=== PATIENT | male | born 1960 | race Caucasian/White ===

== ENCOUNTER 2017-09-04 12:04 | Observation (INO) | payer BC ==
[~2017-09-04] VITALS: Ht 170.2 cm; Wt 70.3 kg
[2017-09-04 13:11] LABS: Hematocrit 35.4 % (41.0-53.0); Hemoglobin 11.7 g/dL (13.5-17.5); Mean Corpuscular Hemoglobin 28.7 pg (28.0-32.0); Mean Corpuscular Hgb Conc. 32.9 g/dL (32.0-36.0); Mean Corpuscular Volume 87.2 fL (80.0-100.0); Platelet Count (auto) 326 10^3/uL (140-450); Red Blood Cells 4.06 10^6/uL (4.5-5.90); Red Cell Distribution Width 12.8 % (11.8-14.3)
[2017-09-04 13:19] LABS: White Blood Cell 33.6 10^3/uL (4.4-10.8)
[2017-09-04 13:21] LABS: Band Neutrophils % (manual) 0; Basophils % (manual) 0 (0.0-2.0); Blast Cells 0; Eosinophils % (manual) 0 (0-7); Metamyelocytes % 0; Myelocytes % 0; Promyelocytes % 0; Reactive Lymphocytes 0
[2017-09-04 13:33] LABS: Albumin 2.2 g/dL (3.4-5.0); Calcium 8.5 mg/dL (8.5-10.1)
[2017-09-04 13:34] LABS: Bilirubin, Total 0.8 mg/dL (0.2-1.0); Total Protein 7.7 g/dL (6.4-8.2)
[2017-09-04] MEDS ORDERED: SODIUM CHLORIDE 0.9% 1,000 ML IVB ONE (13:58)
[2017-09-04] MEDS ORDERED: SODIUM CHLORIDE 0.9% 1,000 ML IV ONE (14:00)
[2017-09-04] MEDS ORDERED: ONDANSETRON HCL 4 MG/2 ML VIAL IV ONE (14:00)
[2017-09-04 14:16] LABS: Lymphocytes % (manual) 3 (10.0-50.0); Monocytes % (manual) 7 (0-12)
[2017-09-04] MEDS ORDERED: CLINDAMYCIN 600MG IV 50 ML IV ONE (14:30)
[2017-09-04 14:44] LABS: Magnesium 2.1 mg/dL (1.6-2.6)
[2017-09-04] MEDS ORDERED: InsuLIN REG 1unit/0.01ml Soln (100units/ml) IV ONE (14:45)
[2017-09-04 14:53] LABS: INR 1.08 (0.9-1.15); Partial Thromboplastin Time 34.1 sec (22.64-33.71); Prothrombin Time 11.8 sec (9.37-12.3)
[2017-09-04] MEDS ORDERED: PROMETHAZINE HCL 25 MG/ML 1ML ONE (15:01)
[2017-09-04] MEDS ORDERED: PROMETHAZINE HCL 25 MG/ML 1ML IV ONE (15:15)
[2017-09-04 15:28] LABS: Lactic Acid w/Reflex 2.7 mmol/L (0.4-2.0)
[2017-09-04] MEDS ORDERED: PIPERACILLIN-TAZOB 2.25GM 50 ML IV ONE (15:30)
[2017-09-04] MEDS ORDERED: LINEZOLID 600MG/300ML 300 ML IV SCH ×2 (15:30→18:00)
[2017-09-04 16:34] VITALS: BP 115/57
[2017-09-04] MEDS ORDERED: PIPERACILLIN-TAZOB 2.25GM 50 ML IV SCH (21:00)
== END 2017-09-04 16:52 | disposition short-term general hospital (02) | DRG 872 ==
LOC: ER 12:04 → OVERFLOW 14:00 → ER 16:52
PROVIDERS: ADMIT Family Medicine; ATTEND Family Medicine
DX: A41.9 Sepsis, unspecified organism (principal); E11.65 Type 2 diabetes mellitus with hyperglycemia; N19 Unspecified kidney failure; L03.119 Cellulitis of unspecified part of limb; R11.2 Nausea with vomiting, unspecified; Z91.14 Patient's other noncompliance with medication regimen; Z91.19 Patient's noncompliance with other medical treatment and regimen; Z82.49 Family history of ischemic heart disease and other diseases of the circulatory system; Z83.3 Family history of diabetes mellitus
CPT/HCPCS: 36415; 71046; 73630; 73700; 74176; 80053; 82150; 82962; 83605; 83690; 83735; 85007; 85027; 85610; 85730; 87040; 87077; 87186; 87205; 93005; 96361; 96365; 96366; 96368; 96372; 96375; 99291; G0378; J1815; J2405; J2543; J2550; J3490; J7030

== ENCOUNTER 2020-02-13 12:07 | Inpatient (IN) | payer BC, OTHER ==
[~2020-02-13] VITALS: Ht 170.2 cm; Wt 74.5 kg
[2020-02-13] MEDS ORDERED: ACETAMINOPHEN 500 MG TAB PO ONE (13:30)
[2020-02-13] MEDS ORDERED: SODIUM CHLORIDE 0.9% 1,000 ML IVB ONE (14:55)
[2020-02-13] MEDS ORDERED: MORPHINE SULF INJ 2 MG/ML SYRINGE 1ML IV ONE (15:00)
[2020-02-13] MEDS ORDERED: ONDANSETRON HCL 4 MG/2 ML VIAL IV ONE ×2 (15:00→20:15)
[2020-02-13 15:25] LABS: Basophils # (auto) 0.1 10 ^3/uL (0-0.2); Basophils % (auto) 0.4 % (0.0-2.0); Eosinophils # (auto) 0 10 ^3/uL (0-0.8); Hematocrit 29.2 % (41.0-53.0); Hemoglobin 9.4 g/dL (13.5-17.5); Lymphocytes # (auto) 0.8 10 ^3/uL (0.4-5.4); Lymphocytes % (auto) 3.2 % (10.0-50.0); Mean Corpuscular Hemoglobin 29.4 pg (28.0-32.0); Mean Corpuscular Hgb Conc. 32.1 g/dL (32.0-36.0); Mean Corpuscular Volume 91.7 fL (80.0-100.0); Monocytes # (auto) 1.5 10 ^3/uL (0-1.3); Monocytes % (auto) 5.9 % (0.0-12.0); Neutrophils # (auto) 22.9 10 ^3/uL (1.6-8.6); Neutrophils % (auto) 90.5 % (37.0-80.0); Platelet Count (auto) 432 10^3/uL (140-450); Red Blood Cells 3.19 10^6/uL (4.5-5.90); Red Cell Distribution Width 15.3 % (11.8-14.3); White Blood Cell 25.3 10^3/uL (4.4-10.8)
[2020-02-13 15:28] LABS: Albumin 2.2 g/dL (3.4-5.0); Calcium 7.1 mg/dL (8.5-10.1); Magnesium 2.4 mg/dL (1.6-2.6); Potassium 3.3 mmol/L (3.5-5.1)
[2020-02-13 15:29] LABS: INR 1.15 (0.9-1.15); Partial Thromboplastin Time 32.9 sec (23.0-31.2)
[2020-02-13 15:32] LABS: BUN/Creatinine Ratio 9.2; Bilirubin, Total 0.4 mg/dL (0.2-1.0); Total Protein 6.8 g/dL (6.4-8.2)
[2020-02-13] MEDS ORDERED: DEXTROSE (50%) 50ML SYRG IV ONE (16:30)
[2020-02-13] MEDS ORDERED: cefTRIAXone 1GM/50ML D5W 50 ML IV ONE (17:00)
[2020-02-13] MEDS ORDERED: MORPHINE SULFATE 4 MG/ML SYR/VIAL IV ONE (20:15)
[2020-02-13] MEDS ORDERED: TEMAZEPAM 15 MG CAP PO PRN (20:45)
[2020-02-13] MEDS ORDERED: DOCUSATE SOD 100 MG CAP PO PRN (20:45)
[2020-02-13] MEDS ORDERED: ACETAMINOPHEN 500 MG TAB PO PRN (20:45)
[2020-02-13] MEDS ORDERED: ACETAMINOPHEN 325 MG TAB PO PRN (20:45)
[2020-02-13] MEDS ORDERED: ALBUTEROL SULF HFA 90MCG INH 200DOSE IN SCH (22:00)
[2020-02-13] MEDS: DOXYCYCLINE 100 MG TAB/CAP PO SCH (22:52)
[2020-02-13] MEDS: ONDANSETRON HCL 4 MG/2 ML VIAL IV PRN (23:01)
[2020-02-13] MEDS: MORPHINE SULF INJ 2 MG/ML SYRINGE 1ML IV PRN (23:02)
[2020-02-14] MEDS: CLINDAMYCIN 600MG IV 50 ML IV SCH ×2 (00:50→06:25)
[2020-02-14] MEDS: HYDROcodone-ACET 5/325MG TAB PO PRN (00:51)
[2020-02-14] MEDS: ONDANSETRON HCL 4 MG/2 ML VIAL IV PRN ×3 (03:12→22:28)
[2020-02-14] MEDS: MORPHINE SULF INJ 2 MG/ML SYRINGE 1ML IV PRN ×3 (03:12→22:28)
[2020-02-14 08:07] LABS: Basophils # (auto) 0 10 ^3/uL (0-0.2); Basophils % (auto) 0.1 % (0.0-2.0); Eosinophils # (auto) 0 10 ^3/uL (0-0.8); Eosinophils % (auto) 0.1 % (0.0-7.0); Hemoglobin 8.9 g/dL (13.5-17.5); Lymphocytes # (auto) 0.9 10 ^3/uL (0.4-5.4); Lymphocytes % (auto) 3.6 % (10.0-50.0); Mean Corpuscular Hemoglobin 29.6 pg (28.0-32.0); Mean Corpuscular Hgb Conc. 31.9 g/dL (32.0-36.0); Mean Corpuscular Volume 92.7 fL (80.0-100.0); Monocytes # (auto) 1.3 10 ^3/uL (0-1.3); Monocytes % (auto) 4.9 % (0.0-12.0); Neutrophils # (auto) 23.3 10 ^3/uL (1.6-8.6); Neutrophils % (auto) 91.3 % (37.0-80.0); Platelet Count (auto) 360 10^3/uL (140-450); Red Blood Cells 3.02 10^6/uL (4.5-5.90); Red Cell Distribution Width 15.7 % (11.8-14.3); White Blood Cell 25.6 10^3/uL (4.4-10.8)
[2020-02-14 08:42] LABS: Albumin 1.9 g/dL (3.4-5.0); Calcium 7.1 mg/dL (8.5-10.1); Magnesium 2.4 mg/dL (1.6-2.6); Potassium 3.3 mmol/L (3.5-5.1)
[2020-02-14 08:49] LABS: BUN/Creatinine Ratio 9.7; Bilirubin, Total 0.4 mg/dL (0.2-1.0); Total Protein 5.9 g/dL (6.4-8.2)
[2020-02-14] MEDS ORDERED: ZINC SULFATE 220mg CAP or TAB PO SCH (10:00)
[2020-02-14] MEDS ORDERED: ASCORBIC ACID 1,000 MG TAB PO SCH (10:00)
[2020-02-14] MEDS: ENOXAPARIN SOD 30 MG/0.3 ML SYRINGE SC SCH (11:04)
[2020-02-14] MEDS: DOXYCYCLINE 100 MG TAB/CAP PO SCH (11:04)
[2020-02-14] MEDS ORDERED: VANCOMYCIN PER PHARMACY 0 MG IV SCH (12:00)
[2020-02-14] MEDS ORDERED: MEROPENEM 500MG IVPB 50 ML IV ONE (12:00)
[2020-02-14] MEDS ORDERED: VANCOMYCIN 1GM/250ML 250 ML IV ONE (12:00)
[2020-02-14] MEDS ORDERED: SODIUM CHL 0.9% 1000 ML BAG XX ONE (13:00)
[2020-02-14 13:30] VITALS: BP 134/60
--- NOTE | 2020-02-14 13:40 | NUR ---
Telemetry admit from ER KAITLIN DEJESUS admitted to Telemetry unit after SBAR received. Patient oriented to JUNIOR CLAY RN primary RN, unit, room, bed, and unit policies regarding patient care. Patient now on continuous telemetry monitoring, tele box # 38 and telemetry reading on arrival to unit is sinus rhythm 92. Patient placed on bedside oxygen 2L NC, respirations even and unlabored. Bed in low and locked position, call light within reach. Will continue to monitor Q1 hour and PRN.
[2020-02-14] MEDS: GENTAMICIN OPTH sol 0.3% 5ml EACHEYE SCH ×3 (14:00→22:27)
--- NOTE | 2020-02-14 14:10 | NUR ---
POM Patient own medications taken down to pharmacy.
[2020-02-14] MEDS ORDERED: PATI1POW PO (15:28)
[2020-02-14] MEDS ORDERED: MULT-1018 PO (15:28)
[2020-02-14] MEDS ORDERED: FERR27TA2 PO (15:28)
[2020-02-14] MEDS ORDERED: CYAN1TAB14 PO (15:28)
[2020-02-14] MEDS ORDERED: INSLISPI SC (15:28)
[2020-02-14] MEDS ORDERED: SEVE800T8 PO (15:28)
[2020-02-14] MEDS ORDERED: MAGN500C PO (15:28)
[2020-02-14] MEDS ORDERED: FURO80TA3 PO (15:28)
[2020-02-14] MEDS ORDERED: AML5T PO (15:28)
[2020-02-14] MEDS ORDERED: TURM500C3 PO (15:28)
[2020-02-14] MEDS ORDERED: UBIQ100C6 PO (15:28)
[2020-02-14] MEDS ORDERED: ATOR20TA PO (15:28)
--- NOTE | 2020-02-14 16:33 | NUR ---
Dialysis nurse at bedside
--- NOTE | 2020-02-14 19:05 | NUR ---
Closing Note Report given to mine shifter RN. No signs or symptoms of distress noted at this time. Dialysis nurse at bedside.
[2020-02-14 21:00] VITALS: BP 129/66
[2020-02-14] MEDS ORDERED: EPOETIN ALFA 10,000 UNIT/1 ML VIAL SC ONE (21:00)
[2020-02-15] MEDS: LORazepam 0.5 MG TAB PO PRN (02:04)
[2020-02-15] MEDS: GENTAMICIN OPTH sol 0.3% 5ml EACHEYE SCH ×6 (02:06→22:44)
[2020-02-15] MEDS: MORPHINE SULF INJ 2 MG/ML SYRINGE 1ML IV PRN ×5 (02:35→20:44)
[2020-02-15 05:00] VITALS: BP 113/59
[2020-02-15 06:28] LABS: Basophils # (auto) 0 10 ^3/uL (0-0.2); Eosinophils # (auto) 0.1 10 ^3/uL (0-0.8); Eosinophils % (auto) 0.3 % (0.0-7.0); Hematocrit 27.6 % (41.0-53.0); Hemoglobin 8.8 g/dL (13.5-17.5); Lymphocytes # (auto) 1.3 10 ^3/uL (0.4-5.4); Lymphocytes % (auto) 5.6 % (10.0-50.0); Mean Corpuscular Hemoglobin 29.5 pg (28.0-32.0); Mean Corpuscular Hgb Conc. 31.8 g/dL (32.0-36.0); Mean Corpuscular Volume 92.8 fL (80.0-100.0); Monocytes # (auto) 1.5 10 ^3/uL (0-1.3); Monocytes % (auto) 6.2 % (0.0-12.0); Neutrophils # (auto) 21.1 10 ^3/uL (1.6-8.6); Neutrophils % (auto) 87.9 % (37.0-80.0); Platelet Count (auto) 377 10^3/uL (140-450); Red Blood Cells 2.97 10^6/uL (4.5-5.90)
[2020-02-15 07:11] LABS: BUN/Creatinine Ratio 3.7; Potassium 3.4 mmol/L (3.5-5.1)
--- NOTE | 2020-02-15 07:25 | NUR ---
Opening Note Received report from starting gate driver RN. Patient is awake, alert and oriented x4. No signs or symptoms of distress noted at this time. Patient complains of pain to right leg and is requesting pain medications, will medicate per orders. Patient is on room air, respirations even and unlabored. Reviewed plan of care with patient, patient verbalized understanding. Bed in low and locked position, call light within reach. Will continue to monitor Q1 hour and PRN.
[2020-02-15] MEDS ORDERED: VANCOMYCIN 1GM/250ML 250 ML IV ONE (08:30)
[2020-02-15 08:55] VITALS: BP 138/71
[2020-02-15] MEDS: MEROPENEM 500MG IVPB 50 ML IV SCH ×2 (10:00→22:45)
[2020-02-15] MEDS ORDERED: MEROPENEM 500MG IVPB 50 ML IV SCH (10:00)
[2020-02-15] MEDS: ENOXAPARIN SOD 30 MG/0.3 ML SYRINGE SC SCH (10:14)
[2020-02-15] MEDS: ONDANSETRON HCL 4 MG/2 ML VIAL IV PRN ×2 (10:14→20:45)
--- NOTE | 2020-02-15 11:48 | NUR ---
Nutrition Consult/Assessment Note please see attached link for complete assessment [employer] needs BW 79 [id number] kcals (27-30 kcal/kgBW), Est Protein needs: 94-110gms/day (1.2-1.4 gm/kgBW r/t HD severe hypoalb). Will continue to monitor and reassess prn. Addendum: 02/15/20 at [address] Amended: Links added.
[2020-02-15 13:21] VITALS: BP 147/76
[2020-02-15] MEDS ORDERED: POTASSIUM CHL 20 Meq TABLET PO ONE (14:30)
[2020-02-15 16:28] VITALS: BP 127/80
--- NOTE | 2020-02-15 19:04 | NUR ---
Closing Note Report given to gold letterer RN. No signs or symptoms of distress noted at this time.
[2020-02-15 22:00] VITALS: BP 129/69
[2020-02-16] VITALS (7 sets, daily range): BP systolic 125–156; BP diastolic 66–80
[2020-02-16] MEDS: GENTAMICIN OPTH sol 0.3% 5ml EACHEYE SCH ×6 (02:00→22:00)
[2020-02-16 05:46] LABS: Basophils # (auto) 0 10 ^3/uL (0-0.2); Basophils % (auto) 0.1 % (0.0-2.0); Eosinophils # (auto) 0 10 ^3/uL (0-0.8); Hematocrit 27.3 % (41.0-53.0); Hemoglobin 8.5 g/dL (13.5-17.5); Lymphocytes # (auto) 0.8 10 ^3/uL (0.4-5.4); Lymphocytes % (auto) 3.5 % (10.0-50.0); Mean Corpuscular Hemoglobin 29.2 pg (28.0-32.0); Monocytes % (auto) 4.5 % (0.0-12.0); Neutrophils # (auto) 20.2 10 ^3/uL (1.6-8.6); Neutrophils % (auto) 91.9 % (37.0-80.0); Platelet Count (auto) 396 10^3/uL (140-450); Red Blood Cells 2.91 10^6/uL (4.5-5.90); Red Cell Distribution Width 15.7 % (11.8-14.3)
[2020-02-16 06:12] LABS: Potassium 4.2 mmol/L (3.5-5.1)
[2020-02-16 06:19] LABS: BUN/Creatinine Ratio 8.4; Calcium 6.7 mg/dL (8.5-10.1)
[2020-02-16] MEDS ORDERED: SODIUM CHL 0.9% 1000 ML BAG XX ONE (07:00)
--- NOTE | 2020-02-16 07:46 | NUR ---
Opening Note Assumed pt care from NOC RN. Pt is a/ox4 with no s/s of distress or SOB. Pt is currently sitting upright in bed receiving dialysis at this time. Discussed POC with pt and pending Radiology consult; pt verbalized understanding. Safety measures maintained with call light within reach, bed in lowest position and side rails up.Will continue to monitor for changes.
[2020-02-16] MEDS ORDERED: IOHEXOL 300 MG/ML 100ML BOTTLE IJ ONE (09:46)
[2020-02-16] MEDS: ENOXAPARIN SOD 30 MG/0.3 ML SYRINGE SC SCH (10:01)
[2020-02-16] MEDS: MORPHINE SULF INJ 2 MG/ML SYRINGE 1ML IV PRN ×2 (10:37→23:03)
--- NOTE | 2020-02-16 10:55 | NUR ---
Dialysis Compleye Completed treatment, pt tolerated treatment well.
[2020-02-16] MEDS: HYDROcodone-ACET 5/325MG TAB PO PRN (11:07)
--- NOTE | 2020-02-16 12:21 | NUR ---
Pt Off Unit to Radiology Taken via bed. A/ox4 with no s/s of distress. Addendum: 02/16/20 at 1311 by NERISSA CAO RN RN Pt back on unit. A/oX4 with no s/s of distress.
[2020-02-16] MEDS ORDERED: LIDOCAINE 2%HCL (LOCAL ANESTH.) INJ 20ML MDV ONE (12:35)
--- NOTE | 2020-02-16 14:37 | NUR ---
Dr Campbell at Bedside MD to see pt. No new orders at this time. Will continue to monitor for changes.
[2020-02-16] MEDS ORDERED: VANCOMYCIN 500 MG in D5W 5% 100 ML IV ONE (16:00)
[2020-02-16] MEDS ORDERED: EPOETIN ALFA 10,000 UNIT/1 ML VIAL SC ONE (21:00)
[2020-02-16] MEDS: ONDANSETRON HCL 4 MG/2 ML VIAL IV PRN (23:03)
[2020-02-17] MEDS: GENTAMICIN OPTH sol 0.3% 5ml EACHEYE SCH ×6 (02:00→22:24)
[2020-02-17 05:44] VITALS: BP 153/89
[2020-02-17 05:45] LABS: Basophils # (auto) 0 10 ^3/uL (0-0.2); Basophils % (auto) 0.2 % (0.0-2.0); Eosinophils # (auto) 0.2 10 ^3/uL (0-0.8); Eosinophils % (auto) 0.8 % (0.0-7.0); Hematocrit 27.4 % (41.0-53.0); Hemoglobin 8.7 g/dL (13.5-17.5); Lymphocytes # (auto) 1.1 10 ^3/uL (0.4-5.4); Lymphocytes % (auto) 5.7 % (10.0-50.0); Mean Corpuscular Hemoglobin 29.9 pg (28.0-32.0); Mean Corpuscular Hgb Conc. 31.9 g/dL (32.0-36.0); Mean Corpuscular Volume 93.9 fL (80.0-100.0); Monocytes # (auto) 1.1 10 ^3/uL (0-1.3); Monocytes % (auto) 5.5 % (0.0-12.0); Neutrophils # (auto) 17.1 10 ^3/uL (1.6-8.6); Neutrophils % (auto) 87.8 % (37.0-80.0); Platelet Count (auto) 445 10^3/uL (140-450); Red Blood Cells 2.92 10^6/uL (4.5-5.90); Red Cell Distribution Width 16.4 % (11.8-14.3); White Blood Cell 19.5 10^3/uL (4.4-10.8)
[2020-02-17 06:06] LABS: Potassium 3.8 mmol/L (3.5-5.1)
[2020-02-17 06:15] LABS: Albumin 1.9 g/dL (3.4-5.0); BUN/Creatinine Ratio 7.4; Bilirubin, Total 0.3 mg/dL (0.2-1.0); Calcium 7.3 mg/dL (8.5-10.1); Total Protein 6.3 g/dL (6.4-8.2)
--- NOTE | 2020-02-17 08:15 | NUR ---
Opening Shift Note Assumed care of patient, awake and alert sitting in semi-de jesus's position eating breakfast upon entering the room. No S/S of distress/SOB. Patient states he has pain in the right shoulder and hip 10/10 that he tolerates and does not require medication for. Patient verbalized the need for pain medication as a sleep aid, but "Does not require any during the day". Patient was educated on the PRN medication available to him if needed. Patient verbalized understanding and declined any medication at this time. Instructed on POC and to call for assist PRN, will continue to monitor for changes Q1hr and PRN.
[2020-02-17 09:00] VITALS: BP 150/70
[2020-02-17] MEDS: MEROPENEM 500MG IVPB 50 ML IV SCH (10:23)
[2020-02-17] MEDS: ENOXAPARIN SOD 30 MG/0.3 ML SYRINGE SC SCH (10:30)
--- NOTE | 2020-02-17 12:57 | NUR ---
Elevated BP BP of 160/89 with a HR of 78, reassessed, 160/91 with a HR of 88. Pt currently states that he is in some pain but would not like to have any pain medication at this time. Ericka Campbell. Will continue to monitor. Addendum: 02/17/20 at 1429 by NERISSA CAO RN RN MD CARDONA BACK. ORDERS GIVEN. WILL IMPLEMENT AND CONTINUE TO MONITOR.
[2020-02-17 12:59] VITALS: BP 160/91
--- NOTE | 2020-02-17 13:44 | NUR ---
Rounding Patient educated on indications for PRN stool softener and the risks of not having a bowel movement for 4 days. Patient refuses treatment. Hygiene care was also refused when offered at this time. Will continue to encourage daily hygiene and assess GI function.
[2020-02-17] MEDS: cloNIDine HCL 0.1 MG TAB PO PRN (14:47)
[2020-02-17 17:00] VITALS: BP 143/81
[2020-02-17 22:27] VITALS: BP 140/73
[2020-02-17] MEDS: MORPHINE SULF INJ 2 MG/ML SYRINGE 1ML IV PRN (22:27)
[2020-02-18] MEDS: GENTAMICIN OPTH sol 0.3% 5ml EACHEYE SCH ×6 (02:01→22:24)
[2020-02-18 05:19] LABS: Basophils # (auto) 0.1 10 ^3/uL (0-0.2); Basophils % (auto) 0.5 % (0.0-2.0); Eosinophils # (auto) 0.2 10 ^3/uL (0-0.8); Hematocrit 28.9 % (41.0-53.0); Hemoglobin 8.9 g/dL (13.5-17.5); Lymphocytes # (auto) 1.2 10 ^3/uL (0.4-5.4); Lymphocytes % (auto) 6.2 % (10.0-50.0); Mean Corpuscular Hemoglobin 29.4 pg (28.0-32.0); Mean Corpuscular Hgb Conc. 30.9 g/dL (32.0-36.0); Mean Corpuscular Volume 95.3 fL (80.0-100.0); Monocytes # (auto) 1.2 10 ^3/uL (0-1.3); Monocytes % (auto) 6.5 % (0.0-12.0); Neutrophils # (auto) 16.5 10 ^3/uL (1.6-8.6); Neutrophils % (auto) 85.8 % (37.0-80.0); Platelet Count (auto) 459 10^3/uL (140-450); Red Blood Cells 3.03 10^6/uL (4.5-5.90); Red Cell Distribution Width 15.8 % (11.8-14.3); White Blood Cell 19.2 10^3/uL (4.4-10.8)
[2020-02-18 05:38] LABS: BUN/Creatinine Ratio 7.4; Calcium 7.4 mg/dL (8.5-10.1)
[2020-02-18 05:44] VITALS: BP 147/71
--- NOTE | 2020-02-18 07:50 | NUR ---
Opening Shift Note Assumed care of patient, awake and alert. No S/S of distress/SOB, patient complain of pain 10/10 when moving. Instructed on POC and to call for assist PRN, will continue to monitor for changes Q1hr and PRN. Bed in lowest position, call light in reach.
[2020-02-18 08:00] VITALS: BP 140/76
[2020-02-18] MEDS: MEROPENEM 500MG IVPB 50 ML IV SCH (08:51)
[2020-02-18] MEDS: MORPHINE SULF INJ 2 MG/ML SYRINGE 1ML IV PRN ×2 (08:52→14:52)
[2020-02-18] MEDS: ENOXAPARIN SOD 30 MG/0.3 ML SYRINGE SC SCH (08:53)
--- NOTE | 2020-02-18 08:59 | NUR ---
pain patient c/o right arm/leg pain, rates it 10/10. will medicate per MD orders.
[2020-02-18 09:00] VITALS: BP 140/76
[2020-02-18] MEDS: ceFAZolin 1GM/50ML 50 ML IV SCH (10:00)
--- NOTE | 2020-02-18 10:31 | NUR ---
UPDATED NEXT OF KIN , AFTER DAUGHTER LUIZ , PROVIDED PASSWORD.
--- NOTE | 2020-02-18 11:46 | NUR ---
Nutrition Followup Notes Wt: 78.8 kg Pt was awake and oriented when rounded . per pt in pain and ca not talk much. per reocrds pf had HD 02/15. pt is currently on CCHO 60 gm renal std diet with fair PO of avg 65% x 6 per RN doc [employer] needs BW 79 [id number] kcals (27-30 kcal/kgBW), Est Protein needs: 94-110gms/day (1.2-1.4 gm/kgBW r/t HD severe hypoalb). Will continue to monitor and reassess prn. LABS: BUN 52 H CREAT 6.98 H CA 7.4 L, GLU 254 H GI: Pt has no BM reported per RN note BS: 16 mod risk. Refer to wound assessment report for full details. PES: Altered nutrition related lab values aeb elev RFTs, severe hypoalb Comments: will continue to monitor PO intake, and skin. F/u high 3-5 days Rec: 1) consider prostat 1 packet bid. 2) refer to CDE on DC. 3) continue current plan of care
[2020-02-18] MEDS ORDERED: SODIUM CHL 0.9% 1000 ML BAG XX ONE (12:15)
[2020-02-18 13:00] VITALS: BP 134/79
--- NOTE | 2020-02-18 13:49 | NUR ---
ROUNDS Patient receiving dialysis, no signs of distress or SOB. Will continue to monitor every hour. Bed in lowest position, call light in reach.
--- NOTE | 2020-02-18 14:45 | NUR ---
Pt refused PT tx today. Addendum: 02/18/20 at 1458 by Tan Vogt [employer]CRETE M[employer]ER LOADER [employer] Amended: Links added.
--- NOTE | 2020-02-18 15:22 | NUR ---
PAIN PATIENT IS COMPLAINING OF RIGHT LEG PAIN, RTES IT 03/19, WILL MEDICATE PER MD ORDERS. Addendum: 02/18/20 at 1600 by Dora Glez RN *1522 PATIENT CONTINUES TO C/O PAIN, PATIENT IS REFUSING TO REPOSITION, STATES, " IT HURTS TO MOVE". WILL CONTINUE TO MONITOR.
--- NOTE | 2020-02-18 15:46 | NUR ---
assessment Patient is a 59 year old male who is alert and oriented. Prior to admission patient lived home alone and functioned with assistance. Per patient he will return home to his prior living arrangements post discharge and family will transport him home. Patient has a wheelchair for home use. Patient is on service with [facility] on T TH SAT at 3 pm[address] Patients PCP is Dr Santana. Patients ex- Cat is his caregiver. Patient may benefit from home health for PT and safety on discharge. I informed patient he has a right to speak to a high school social studies teacher regarding all care. I informed patient he has a right to participate in any and all discharge planning. Patient does not have a POA and advanced directive. I have offered patient information on POA and advanced directives. I informed the patient the advantages and benefits of having an Advanced Directive. Patient verbalized understanding and agreed to discharge plan. Addendum: 02/18/20 at 1552 by Skylar HILL Amended: Links added.
[2020-02-18] MEDS ORDERED: VANCOMYCIN 500 MG in D5W 5% 100 ML IV ONE (16:00)
--- NOTE | 2020-02-18 16:50 | NUR ---
PAIN Patient c/o pain, rates it 10/10. Patient is moaning and crying. Medicated with Hydrocodone, per MD orders.
[2020-02-18] MEDS: cloNIDine HCL 0.1 MG TAB PO PRN (16:58)
[2020-02-18] MEDS: HYDROcodone-ACET 5/325MG TAB PO PRN (16:59)
[2020-02-18] MEDS: LORazepam 0.5 MG TAB PO PRN (17:37)
[2020-02-18 20:00] VITALS: BP 136/77
[2020-02-18] MEDS ORDERED: EPOETIN ALFA 10,000 UNIT/1 ML VIAL SC ONE (21:00)
[2020-02-18 21:51] VITALS: BP 136/77
[2020-02-19] VITALS (7 sets, daily range): BP systolic 148–154; BP diastolic 70–81
[2020-02-19] MEDS: GENTAMICIN OPTH sol 0.3% 5ml EACHEYE SCH ×6 (02:00→22:39)
[2020-02-19] MEDS: ceFAZolin 1GM/50ML 50 ML IV SCH (10:02)
[2020-02-19] MEDS: ENOXAPARIN SOD 30 MG/0.3 ML SYRINGE SC SCH (10:02)
--- NOTE | 2020-02-19 14:33 | NUR ---
Dr Campbell on unit
[2020-02-19] MEDS ORDERED: DEXTROSE (50%) 50ML SYRG IV PRN (21:30)
--- NOTE | 2020-02-19 22:53 | NUR ---
Diabetic Treatment and Insulin Coverage The patient informed me that his diabetes has not been treated since he has been here. I told him it was missed and that I would set it up now. He stated he did not want to use our sliding scale as he was afraid we would make his blood sugar drop too low. He requested to use his own Humalog Insulin which he turned in to pharmacy upon arrival. Discussed the situation with the Pharmacist on duty and the provider, Mr. Vences. I was able to get an order to allow the patient to use his own insulin but also added a Q4 sliding scale as to further monitor as the patient has not been treated for so long. The patient's own meds is set to be given daily at 0700hrs but the patient admitted there is no set time, but that he takes it once a day. I informed him we needed to have a set time to input it into the computer system. The patient stated he understood. Will continue to monitor.
[2020-02-20] MEDS: ACCU-CHEK COMFORT CURVE STRIP VI SCH ×4 (00:25→11:36)
[2020-02-20] MEDS: GENTAMICIN OPTH sol 0.3% 5ml EACHEYE SCH ×3 (02:00→10:00)
[2020-02-20] MEDS: InsuLIN REG 1unit/0.01ml Soln (100units/ml) SC SCH ×4 (04:00→11:36)
[2020-02-20 05:00] VITALS: BP 150/78
[2020-02-20 05:00] LABS: Basophils # (auto) 0.2 10 ^3/uL (0-0.2); Basophils % (auto) 1.3 % (0.0-2.0); Eosinophils # (auto) 0.2 10 ^3/uL (0-0.8); Hematocrit 30.3 % (41.0-53.0); Hemoglobin 9.6 g/dL (13.5-17.5); Lymphocytes # (auto) 1.5 10 ^3/uL (0.4-5.4); Lymphocytes % (auto) 8.2 % (10.0-50.0); Mean Corpuscular Hemoglobin 29.7 pg (28.0-32.0); Mean Corpuscular Hgb Conc. 31.8 g/dL (32.0-36.0); Mean Corpuscular Volume 93.5 fL (80.0-100.0); Monocytes # (auto) 1.2 10 ^3/uL (0-1.3); Monocytes % (auto) 6.3 % (0.0-12.0); Neutrophils # (auto) 15.3 10 ^3/uL (1.6-8.6); Neutrophils % (auto) 83.2 % (37.0-80.0); Platelet Count (auto) 436 10^3/uL (140-450); Red Blood Cells 3.24 10^6/uL (4.5-5.90); Red Cell Distribution Width 16.1 % (11.8-14.3); White Blood Cell 18.4 10^3/uL (4.4-10.8)
[2020-02-20 05:19] LABS: Calcium 7.8 mg/dL (8.5-10.1); Potassium 3.7 mmol/L (3.5-5.1)
[2020-02-20 05:21] LABS: BUN/Creatinine Ratio 7.3
[2020-02-20] MEDS ORDERED: [UNRECOGNIZED DRUG - OTHER] SC SCH (07:00)
[2020-02-20] MEDS ORDERED: INSULIN LISPRO SC SCH (07:00)
[2020-02-20 08:00] VITALS: BP 151/82
[2020-02-20 09:00] VITALS: BP 151/82
[2020-02-20] MEDS: ceFAZolin 1GM/50ML 50 ML IV SCH (11:35)
[2020-02-20] MEDS: ENOXAPARIN SOD 30 MG/0.3 ML SYRINGE SC SCH (11:36)
[2020-02-20 12:15] VITALS: BP 151/82
[2020-02-20 13:00] VITALS: BP 145/82
--- NOTE | 2020-02-20 14:20 | NUR ---
Discharge instructions given as ordered. Encourage to follow up with PMD as instructed. Patient to call and schedule appointment as office was closed due to weekend. All questions and concerns addressed. Patient verbalized understanding. Medication reconciliation form completed and copy given to patient. Home medications held in Pharmacy returned to patient, and no needed vaccines given as patient declined. IV removed with catheter intact and pressure dressing applied. Telemetry unit returned to ICU. Patient taken to vehicle via wheelchair with all personal belongings, accompanied by staff member. No distress noted at time of departure.
[2020-02-20] MEDS ORDERED: VANCOMYCIN 500 MG in D5W 5% 100 ML IV ONE (16:00)
[2020-02-20] MEDS ORDERED: EPOETIN ALFA 10,000 UNIT/1 ML VIAL IV ONE (21:00)
== END 2020-02-20 14:20 | disposition home or self-care (01) | DRG 314 ==
LOC: ER 12:07 → OVERFLOW 12:08 → TELE-CENTR 02-14 13:12
PROVIDERS: ADMIT Hospitalist; ATTEND Internal Medicine Geriatric Medicine
PROC: 5A1D70Z Performance of Urinary Filtration, Intermittent, Less than 6 Hours Per Day (ICD-10-PCS; 2020-02-14)
PROC: 0JPV3XZ Removal of Tunneled Vascular Access Device from Upper Extremity Subcutaneous Tissue and Fascia, Percutaneous Approach (ICD-10-PCS; principal; 2020-02-16)
PROC: 5A1D70Z Performance of Urinary Filtration, Intermittent, Less than 6 Hours Per Day (ICD-10-PCS; 2020-02-16)
PROC: 5A1D70Z Performance of Urinary Filtration, Intermittent, Less than 6 Hours Per Day (ICD-10-PCS; 2020-02-18)
PROC: 5A1D70Z Performance of Urinary Filtration, Intermittent, Less than 6 Hours Per Day (ICD-10-PCS; 2020-02-20)
DX: T82.7XXA Infection and inflammatory reaction due to other cardiac and vascular devices, implants and grafts, initial encounter (principal); A41.01 Sepsis due to Methicillin susceptible Staphylococcus aureus; N18.6 End stage renal disease; L03.115 Cellulitis of right lower limb; E87.1 Hypo-osmolality and hyponatremia; I12.0 Hypertensive chronic kidney disease with stage 5 chronic kidney disease or end stage renal disease; E44.0 Moderate protein-calorie malnutrition; H10.9 Unspecified conjunctivitis; D63.1 Anemia in chronic kidney disease; E87.6 Hypokalemia; E11.649 Type 2 diabetes mellitus with hypoglycemia without coma; E78.5 Hyperlipidemia, unspecified; E11.22 Type 2 diabetes mellitus with diabetic chronic kidney disease; Z20.828 Contact with and (suspected) exposure to other viral communicable diseases; M25.511 Pain in right shoulder; M79.651 Pain in right thigh; E11.51 Type 2 diabetes mellitus with diabetic peripheral angiopathy without gangrene; Y83.8 Other surgical procedures as the cause of abnormal reaction of the patient, or of later complication, without mention of misadventure at the time of the procedure; Z99.2 Dependence on renal dialysis; Z89.512 Acquired absence of left leg below knee; Y92.89 Other specified places as the place of occurrence of the external cause; Z68.25 Body mass index [BMI] 25.0-25.9, adult
CPT/HCPCS: 36415; 71045; 73700; 80048; 80053; 80061; 80202; 82306; 82728; 82962; 83036; 83605; 83615; 83690; 83735; 83970; 84100; 85025; 85610; 85730; 86141; 87040; 87070; 87077; 87186; 87426; 90935; 93005; 93971; G0378; J0690; J0696; J0885; J1642; J2185; J2405; J3490; J7060

== ENCOUNTER 2020-06-11 10:31 | Inpatient (IN) | payer OTHER ==
[~2020-06-11] VITALS: Ht 170.2 cm; Wt 62.5 kg
[~2020-06-11 10:31] MED LIST: AML5T PO; ATOR20TA PO; CYAN1TAB14 PO; FERR27TA2 PO; FURO80TA3 PO; INSLISPI SC; MAGN500C PO; MULT-1018 PO; PATI1POW PO; SEVE800T8; TURM500C3 PO; UBIQ100C6 PO
[2020-06-11 12:29] LABS: Basophils # (auto) 0 10 ^3/uL (0-0.2); Basophils % (auto) 0.2 % (0.0-2.0); Eosinophils # (auto) 0 10 ^3/uL (0-0.8); Hematocrit 37.1 % (41.0-53.0); Hemoglobin 12.6 g/dL (13.5-17.5); Lymphocytes # (auto) 0.4 10 ^3/uL (0.4-5.4); Lymphocytes % (auto) 3.6 % (10.0-50.0); Mean Corpuscular Hemoglobin 30.9 pg (28.0-32.0); Mean Corpuscular Hgb Conc. 33.9 g/dL (32.0-36.0); Mean Corpuscular Volume 91.2 fL (80.0-100.0); Monocytes # (auto) 0.6 10 ^3/uL (0-1.3); Monocytes % (auto) 5.2 % (0.0-12.0); Neutrophils # (auto) 10.4 10 ^3/uL (1.6-8.6); Red Blood Cells 4.07 10^6/uL (4.5-5.90); Red Cell Distribution Width 15.8 % (11.8-14.3); White Blood Cell 11.4 10^3/uL (4.4-10.8)
[2020-06-11 12:48] LABS: INR 1.07 (0.9-1.15); Partial Thromboplastin Time 25.1 sec (23.0-31.2)
[2020-06-11 13:07] LABS: Potassium 5.5 mmol/L (3.5-5.1)
[2020-06-11 13:15] LABS: Albumin 3.1 g/dL (3.4-5.0); BUN/Creatinine Ratio 11.9; Bilirubin, Total 0.6 mg/dL (0.2-1.0); Calcium 8.8 mg/dL (8.5-10.1); Total Protein 8.6 g/dL (6.4-8.2)
[2020-06-11] MEDS ORDERED: ONDANSETRON HCL 4 MG/2 ML VIAL IV ONE ×2 (13:15→21:30)
[2020-06-11] MEDS ORDERED: AZITHROMYCIN 500MG/ 250ML 250 ML IV ONE (13:15)
[2020-06-11 14:01] LABS: Magnesium 2.9 mg/dL (1.6-2.6)
[2020-06-11] MEDS ORDERED: DEXTROSE (50%) 50ML SYRG IV PRN ×2 (15:15→18:30)
[2020-06-11] MEDS: InsuLIN R (HUMAN) 100 UNITS in SODIUM CHL 0.9% 99 ML IV SCH (15:15)
[2020-06-11] MEDS ORDERED: MORPHINE SULFATE INJECTION 2 MG/ML SYRG IV PRN (15:30)
[2020-06-11] MEDS ORDERED: NITROGLYCERIN 0.4 MG SL TAB SL PRN (15:30)
[2020-06-11] MEDS ORDERED: InsuLIN REG 1unit/0.01ml Soln (100units/ml) IV ONE ×2 (16:15→18:45)
[2020-06-11] MEDS ORDERED: InsuLIN REG 1unit/0.01ml Soln (100units/ml) SC ONE (16:15)
[2020-06-11] MEDS: SODIUM CHLORIDE 0.9% 1,000 ML IV SCH ×2 (16:26→21:15)
[2020-06-11] MEDS: ACCU-CHEK COMFORT CURVE STRIP VI SCH ×5 (16:32→22:30)
[2020-06-11] MEDS ORDERED: ALBUTEROL SULF HFA 90MCG INH 200DOSE IN PRN (18:30)
[2020-06-11] MEDS ORDERED: LACTULOSE 20Gm/30ML SOLN PO PRN (18:30)
[2020-06-11] MEDS ORDERED: FUROSEMIDE 40 MG/4 ML VIAL IV ONE (18:45)
[2020-06-11] MEDS ORDERED: SODIUM BICARBONATE 8.4% INJ 50ML SYRINGE IV ONE (18:45)
[2020-06-11] MEDS ORDERED: SODIUM ZIRCONIUM CYCL 10 GM PAK PO ONE (18:45)
[2020-06-11] MEDS ORDERED: SODIUM CHLORIDE 0.9% 1,000 ML IV SCH (19:15)
[2020-06-11] MEDS ORDERED: cefTRIAXone 1GM/50ML D5W 50 ML IV ONE (19:30)
[2020-06-11] MEDS ORDERED: SODIUM CHL 0.9% 1000 ML BAG XX ONE (19:30)
[2020-06-11] MEDS: SODIUM CHLOR 0.9% PF (SALINE LOCK) 10ML VIAL/SYR IV SCH (20:57)
[2020-06-11] MEDS ORDERED: SODIUM ZIRCONIUM CYCL 10 GM PAK ONE (20:59)
[2020-06-11] MEDS ORDERED: ONDANSETRON HCL 4 MG/2 ML VIAL ONE (21:22)
[2020-06-11 22:00] LABS: Potassium 4.8 mmol/L (3.5-5.1)
[2020-06-11] MEDS: BUDESONIDE (INHALATION) 180 MCG IH IN SCH (22:00)
[2020-06-12] MEDS: ACCU-CHEK COMFORT CURVE STRIP VI SCH ×6 (00:55→22:51)
[2020-06-12] MEDS: InsuLIN REG 1unit/0.01ml Soln (100units/ml) SC SCH ×5 (00:56→22:53)
[2020-06-12] MEDS: FAMOTIDINE 20 MG TAB PO SCH (00:56)
[2020-06-12] MEDS: SODIUM CHLORIDE 0.9% 1,000 ML IV SCH ×5 (00:57→22:52)
[2020-06-12 01:32] LABS: Calcium 8.3 mg/dL (8.5-10.1); Potassium 3.7 mmol/L (3.5-5.1)
[2020-06-12] MEDS: ONDANSETRON HCL 4 MG/2 ML VIAL IV PRN ×2 (03:33→07:58)
[2020-06-12 04:26] LABS: BUN/Creatinine Ratio 10.8; Calcium 8.4 mg/dL (8.5-10.1)
[2020-06-12] MEDS: SODIUM CHLOR 0.9% PF (SALINE LOCK) 10ML VIAL/SYR IV SCH ×3 (06:04→22:51)
[2020-06-12 06:22] LABS: Basophils # (auto) 0 10 ^3/uL (0-0.2); Basophils % (auto) 0.1 % (0.0-2.0); Eosinophils # (auto) 0 10 ^3/uL (0-0.8); Eosinophils % (auto) 0.5 % (0.0-7.0); Hematocrit 34.2 % (41.0-53.0); Hemoglobin 11.4 g/dL (13.5-17.5); Lymphocytes # (auto) 0.6 10 ^3/uL (0.4-5.4); Lymphocytes % (auto) 7.2 % (10.0-50.0); Mean Corpuscular Hemoglobin 30.4 pg (28.0-32.0); Mean Corpuscular Hgb Conc. 33.4 g/dL (32.0-36.0); Mean Corpuscular Volume 90.8 fL (80.0-100.0); Monocytes # (auto) 0.6 10 ^3/uL (0-1.3); Monocytes % (auto) 7.6 % (0.0-12.0); Neutrophils # (auto) 7.2 10 ^3/uL (1.6-8.6); Neutrophils % (auto) 84.6 % (37.0-80.0); Red Blood Cells 3.76 10^6/uL (4.5-5.90); Red Cell Distribution Width 15.9 % (11.8-14.3); White Blood Cell 8.5 10^3/uL (4.4-10.8)
[2020-06-12] MEDS: cefTRIAXone 1GM/50ML D5W 50 ML IV SCH (07:59)
[2020-06-12 08:03] LABS: Potassium 4.2 mmol/L (3.5-5.1)
[2020-06-12 08:18] LABS: Albumin 2.7 g/dL (3.4-5.0); BUN/Creatinine Ratio 10.5; Bilirubin, Total 0.4 mg/dL (0.2-1.0); Total Protein 7.6 g/dL (6.4-8.2)
[2020-06-12] MEDS ORDERED: DexAMETHasone SOD PHOS 10MG/1ML VIAL INJ IV SCH (10:00)
[2020-06-12] MEDS: ZINC SULFATE 220mg CAP or TAB PO SCH ×2 (10:00→12:30)
[2020-06-12] MEDS: ASCORBIC ACID 1,000 MG TAB PO SCH ×2 (10:00→12:30)
[2020-06-12] MEDS: ASPirin 81 mg TAB PO SCH ×2 (10:00→12:30)
[2020-06-12] MEDS: CHOLECALCIFEROL (VITD3) 2,000 UNIT CAP/TAB PO SCH ×2 (10:00→12:30)
[2020-06-12] MEDS: DexAMETHasone SOD PHOS 10MG/1ML VIAL INJ IV SCH (12:30)
[2020-06-12] MEDS: BUDESONIDE (INHALATION) 180 MCG IH IN SCH ×2 (12:30→21:26)
[2020-06-12] MEDS: AZITHROMYCIN 500MG/ 250ML 250 ML IV SCH (12:30)
[2020-06-12] MEDS: ENOXAPARIN SOD 40 MG/0.4 ML SYRINGE SC SCH (12:30)
[2020-06-12 13:47] LABS: BUN/Creatinine Ratio 10.5; Calcium 8.1 mg/dL (8.5-10.1); Potassium 4.8 mmol/L (3.5-5.1)
[2020-06-12] MEDS: PROMETHAZINE HCL 25 MG/ML 1ML IV PRN ×2 (15:46→22:52)
[2020-06-12] MEDS: InsuLIN R (HUMAN) 100 UNITS in SODIUM CHL 0.9% 99 ML IV SCH (17:30)
[2020-06-13] VITALS: BP 131/81
[2020-06-13 04:17] VITALS: BP 131/81
[2020-06-13] MEDS: BUDESONIDE (INHALATION) 180 MCG IH IN SCH ×2 (06:23→22:00)
[2020-06-13] MEDS: SODIUM CHLOR 0.9% PF (SALINE LOCK) 10ML VIAL/SYR IV SCH ×3 (06:36→21:13)
[2020-06-13] MEDS: SODIUM CHLORIDE 0.9% 1,000 ML IV SCH ×2 (06:36→11:29)
[2020-06-13] MEDS: ACCU-CHEK COMFORT CURVE STRIP VI SCH ×4 (06:37→21:28)
[2020-06-13] MEDS: InsuLIN REG 1unit/0.01ml Soln (100units/ml) SC SCH ×4 (06:38→21:24)
[2020-06-13] MEDS ORDERED: SODIUM CHL 0.9% 1000 ML BAG XX ONE (07:00)
[2020-06-13 07:30] LABS: Basophils # (auto) 0 10 ^3/uL (0-0.2); Basophils % (auto) 0.1 % (0.0-2.0); Eosinophils # (auto) 0 10 ^3/uL (0-0.8); Hematocrit 34.3 % (41.0-53.0); Hemoglobin 11.4 g/dL (13.5-17.5); Lymphocytes # (auto) 0.6 10 ^3/uL (0.4-5.4); Lymphocytes % (auto) 7.3 % (10.0-50.0); Mean Corpuscular Hemoglobin 30.5 pg (28.0-32.0); Mean Corpuscular Hgb Conc. 33.2 g/dL (32.0-36.0); Monocytes # (auto) 0.7 10 ^3/uL (0-1.3); Monocytes % (auto) 9.2 % (0.0-12.0); Neutrophils # (auto) 6.5 10 ^3/uL (1.6-8.6); Neutrophils % (auto) 83.4 % (37.0-80.0); Nucleated Red Blood Cells % 0.1 %; Red Blood Cells 3.73 10^6/uL (4.5-5.90); Red Cell Distribution Width 15.6 % (11.8-14.3); White Blood Cell 7.8 10^3/uL (4.4-10.8)
[2020-06-13 08:00] VITALS: BP 137/81
[2020-06-13] MEDS: DexAMETHasone SOD PHOS 10MG/1ML VIAL INJ IV SCH (09:26)
[2020-06-13] MEDS: cefTRIAXone 1GM/50ML D5W 50 ML IV SCH (09:26)
[2020-06-13] MEDS: ASPirin 81 mg TAB PO SCH (09:27)
[2020-06-13] MEDS: ZINC SULFATE 220mg CAP or TAB PO SCH (09:27)
[2020-06-13] MEDS: ASCORBIC ACID 1,000 MG TAB PO SCH (09:27)
[2020-06-13 09:39] LABS: Potassium 4.8 mmol/L (3.5-5.1)
[2020-06-13 09:58] LABS: BUN/Creatinine Ratio 10.2; Calcium 8.2 mg/dL (8.5-10.1); Magnesium 2.5 mg/dL (1.6-2.6)
[2020-06-13] MEDS: CHOLECALCIFEROL (VITD3) 2,000 UNIT CAP/TAB PO SCH (10:00)
[2020-06-13] MEDS: ENOXAPARIN SOD 40 MG/0.4 ML SYRINGE SC SCH (10:00)
[2020-06-13] MEDS: AZITHROMYCIN 500MG/ 250ML 250 ML IV SCH (11:10)
[2020-06-13 16:00] VITALS: BP 141/83
[2020-06-13] MEDS: FAMOTIDINE 20 MG TAB PO SCH (21:27)
[2020-06-14] VITALS: BP 151/82
[2020-06-14] MEDS: SODIUM CHLOR 0.9% PF (SALINE LOCK) 10ML VIAL/SYR IV SCH (05:58)
[2020-06-14] MEDS: InsuLIN REG 1unit/0.01ml Soln (100units/ml) SC SCH ×2 (06:07→11:30)
[2020-06-14] MEDS: ACCU-CHEK COMFORT CURVE STRIP VI SCH ×2 (06:11→11:30)
[2020-06-14] MEDS ORDERED: SODIUM CHL 0.9% 1000 ML BAG XX ONE (07:00)
[2020-06-14 08:00] VITALS: BP 141/103
[2020-06-14] MEDS: cefTRIAXone 1GM/50ML D5W 50 ML IV SCH (08:59)
[2020-06-14] MEDS: DexAMETHasone SOD PHOS 10MG/1ML VIAL INJ IV SCH (10:00)
[2020-06-14] MEDS: ENOXAPARIN SOD 40 MG/0.4 ML SYRINGE SC SCH (10:00)
[2020-06-14] MEDS: CHOLECALCIFEROL (VITD3) 2,000 UNIT CAP/TAB PO SCH (10:00)
[2020-06-14] MEDS: ASCORBIC ACID 1,000 MG TAB PO SCH (10:00)
[2020-06-14] MEDS: ZINC SULFATE 220mg CAP or TAB PO SCH (10:00)
[2020-06-14] MEDS: ASPirin 81 mg TAB PO SCH (10:00)
[2020-06-14] MEDS: AZITHROMYCIN 500MG/ 250ML 250 ML IV SCH (10:00)
== END 2020-06-14 12:50 | disposition home or self-care (01) | DRG 871 ==
LOC: ER 10:31 → EDBD 10:31 → TELE 15:24 → TELE-WESTW 06-12 21:41
PROVIDERS: ADMIT Internal Medicine; ATTEND Internal Medicine Geriatric Medicine
PROC: 5A1D70Z Performance of Urinary Filtration, Intermittent, Less than 6 Hours Per Day (ICD-10-PCS; principal; 2020-06-11)
PROC: 5A1D70Z Performance of Urinary Filtration, Intermittent, Less than 6 Hours Per Day (ICD-10-PCS; 2020-06-14)
DX: A41.89 Other specified sepsis (principal); U07.1 COVID-19; N18.6 End stage renal disease; I21.4 Non-ST elevation (NSTEMI) myocardial infarction; J96.00 Acute respiratory failure, unspecified whether with hypoxia or hypercapnia; J12.82 Pneumonia due to coronavirus disease 2019; I12.0 Hypertensive chronic kidney disease with stage 5 chronic kidney disease or end stage renal disease; D63.8 Anemia in other chronic diseases classified elsewhere; K21.9 Gastro-esophageal reflux disease without esophagitis; E78.5 Hyperlipidemia, unspecified; E87.70 Fluid overload, unspecified; D72.810 Lymphocytopenia; E87.5 Hyperkalemia; Z99.2 Dependence on renal dialysis; Z82.49 Family history of ischemic heart disease and other diseases of the circulatory system; Z83.3 Family history of diabetes mellitus; Z89.512 Acquired absence of left leg below knee; Z91.15 Patient's noncompliance with renal dialysis; Z91.19 Patient's noncompliance with other medical treatment and regimen; Z84.89 Family history of other specified conditions; Z81.1 Family history of alcohol abuse and dependence; Z79.899 Other long term (current) drug therapy; Z79.891 Long term (current) use of opiate analgesic; Z79.01 Long term (current) use of anticoagulants; Z79.4 Long term (current) use of insulin; E11.22 Type 2 diabetes mellitus with diabetic chronic kidney disease; E11.51 Type 2 diabetes mellitus with diabetic peripheral angiopathy without gangrene
CPT/HCPCS: 36415; 36600; 71045; 80048; 80053; 80061; 82550; 82805; 82962; 83036; 83605; 83735; 83880; 84484; 85025; 85610; 85730; 87040; 87426; 90935; 93005; 94640; 96365; 96366; 96367; 96372; 96375; 96376; 99291; G0378; J0696; J1100; J1815; J2405

== ENCOUNTER 2020-12-19 01:01 | Inpatient (IN) | payer OTHER ==
[~2020-12-19] VITALS: Ht 170.2 cm; Wt 64.7 kg
[2020-12-19 01:44] LABS: Basophils # (auto) 0.1 10 ^3/uL (0-0.2); Basophils % (auto) 0.8 % (0.0-2.0); Eosinophils # (auto) 0.1 10 ^3/uL (0-0.8); Eosinophils % (auto) 0.5 % (0.0-7.0); Hematocrit 29.8 % (41.0-53.0); Lymphocytes # (auto) 0.6 10 ^3/uL (0.4-5.4); Lymphocytes % (auto) 5.4 % (10.0-50.0); Mean Corpuscular Hemoglobin 30.9 pg (28.0-32.0); Mean Corpuscular Hgb Conc. 33.4 g/dL (32.0-36.0); Mean Corpuscular Volume 92.4 fL (80.0-100.0); Monocytes # (auto) 0.3 10 ^3/uL (0-1.3); Monocytes % (auto) 2.6 % (0.0-12.0); Neutrophils # (auto) 9.8 10 ^3/uL (1.6-8.6); Neutrophils % (auto) 90.7 % (37.0-80.0); Red Blood Cells 3.22 10^6/uL (4.5-5.90); Red Cell Distribution Width 15.8 % (11.8-14.3); White Blood Cell 10.9 10^3/uL (4.4-10.8)
[2020-12-19 01:57] LABS: Calcium 7.2 mg/dL (8.5-10.1); Chloride 99 mmol/L (98-107); Potassium 4.6 mmol/L (3.5-5.1); Sodium 131 mmol/L (136-145)
[2020-12-19 02:00] LABS: Albumin 2.6 g/dL (3.4-5.0); Anion Gap 17 (5-15); BUN/Creatinine Ratio 7.1; Carbon Dioxide 15 mmol/L (21-32); GFR African American 5 mL/min; GFR Non-African American 4 mL/min; Glucose 230 mg/dL (74-106); Lipase 103 U/L (73-393)
[2020-12-19 02:05] LABS: Alanine Aminotransferase 18 U/L (16-61); Alkaline Phosphatase 96 U/L (45-117); Aspartate Aminotransferase 9 U/L (15-37); Bilirubin, Total 0.3 mg/dL (0.2-1.0); Total Protein 7.8 g/dL (6.4-8.2)
[2020-12-19 02:20] LABS: Blood Urea Nitrogen 96 mg/dL (7-18)
[2020-12-19 02:30] LABS: Magnesium 2.1 mg/dL (1.6-2.6)
[2020-12-19 02:45] LABS: Phosphorus 10.2 mg/dL (2.5-4.90)
[2020-12-19] MEDS ORDERED: PIPERACILLIN-TAZOB 2.25GM 50 ML IV ONE (03:45)
[2020-12-19] MEDS ORDERED: NITROGLYCERIN 0.4 MG SL TAB SL PRN (06:15)
[2020-12-19] MEDS ORDERED: DEXTROSE (50%) 50ML SYRG IV PRN (06:15)
[2020-12-19] MEDS ORDERED: MORPHINE SULFATE 4 MG/ML SYR/VIAL IV PRN (06:15)
[2020-12-19] MEDS ORDERED: MORPHINE SULFATE INJECTION 2 MG/ML SYRG IV PRN (06:15)
[2020-12-19] MEDS: SODIUM CHLORIDE 0.9% 1,000 ML IV SCH ×2 (06:32→22:56)
[2020-12-19] MEDS: metroNIDAZOLE 500MG/100ML 100 ML IV SCH ×3 (06:32→14:13)
[2020-12-19 08:00] LABS: INR 1.02 (0.9-1.15); Partial Thromboplastin Time 31.9 sec (23.0-31.2)
[2020-12-19] MEDS: cefTRIAXone 1GM/50ML D5W 50 ML IV SCH (09:39)
[2020-12-19] MEDS: PANTOPRAZOLE 40 MG/10 ML VIAL INJ IV SCH (09:55)
[2020-12-19] MEDS: ACCU-CHEK COMFORT CURVE STRIP VI SCH ×2 (12:19→18:29)
[2020-12-19] MEDS: InsuLIN REG 1unit/0.01ml Soln (100units/ml) SC SCH ×2 (12:20→18:00)
[2020-12-19] MEDS: MORPHINE SULFATE 4 MG/ML SYR/VIAL IV PRN ×2 (14:20→22:14)
[2020-12-20] VITALS (7 sets, daily range): BP systolic 108–161; BP diastolic 43–73
[2020-12-20] MEDS: ACCU-CHEK COMFORT CURVE STRIP VI SCH ×4 (00:20→17:28)
[2020-12-20] MEDS: InsuLIN REG 1unit/0.01ml Soln (100units/ml) SC SCH ×4 (06:00→17:28)
[2020-12-20] MEDS ORDERED: VANCOMYCIN PER PHARMACY 0 MG IV SCH (06:15)
[2020-12-20] MEDS: metroNIDAZOLE 500MG/100ML 100 ML IV SCH ×3 (06:27→21:47)
[2020-12-20] MEDS: MORPHINE SULFATE 4 MG/ML SYR/VIAL IV PRN ×2 (06:28→21:20)
[2020-12-20 08:06] LABS: Basophils # (auto) 0 10 ^3/uL (0-0.2); Basophils % (auto) 0.3 % (0.0-2.0); Eosinophils # (auto) 0.1 10 ^3/uL (0-0.8); Eosinophils % (auto) 0.8 % (0.0-7.0); Hematocrit 27.5 % (41.0-53.0); Hemoglobin 8.8 g/dL (13.5-17.5); Lymphocytes # (auto) 0.9 10 ^3/uL (0.4-5.4); Lymphocytes % (auto) 5.6 % (10.0-50.0); Mean Corpuscular Hemoglobin 29.4 pg (28.0-32.0); Mean Corpuscular Hgb Conc. 31.9 g/dL (32.0-36.0); Mean Corpuscular Volume 92.4 fL (80.0-100.0); Neutrophils # (auto) 14.1 10 ^3/uL (1.6-8.6); Neutrophils % (auto) 87.3 % (37.0-80.0); Red Blood Cells 2.97 10^6/uL (4.5-5.90); White Blood Cell 16.2 10^3/uL (4.4-10.8)
[2020-12-20] MEDS ORDERED: VANCOMYCIN 1GM/250ML 250 ML IV ONE (08:15)
[2020-12-20 08:27] LABS: INR 1.05 (0.9-1.15)
[2020-12-20 08:29] LABS: Magnesium 2.6 mg/dL (1.6-2.6); Potassium 5.2 mmol/L (3.5-5.1)
[2020-12-20 08:37] LABS: Albumin 2.6 g/dL (3.4-5.0); BUN/Creatinine Ratio 7.8; Bilirubin, Total 0.3 mg/dL (0.2-1.0); Calcium 7.9 mg/dL (8.5-10.1); Total Protein 7.7 g/dL (6.4-8.2)
[2020-12-20] MEDS ORDERED: SODIUM BICARBONATE 50ML VIAL 100 ML in SOD CHL 0.45% 1,000 ML IV SCH ×2 (10:30→10:45)
[2020-12-20] MEDS ORDERED: SODIUM CHL 0.9% 1000 ML BAG XX ONE (10:45)
[2020-12-20] MEDS ORDERED: LIDOCAINE VISCOUS 2% 15ML UD MT ONE (10:45)
[2020-12-20] MEDS ORDERED: MULT-647 OR (11:31)
[2020-12-20] MEDS ORDERED: FERR27TA2 PO (11:32)
[2020-12-20] MEDS ORDERED: CLIN300C8 PO (11:32)
[2020-12-20] MEDS: cefTRIAXone 1GM/50ML D5W 50 ML IV SCH (12:02)
[2020-12-20] MEDS: PANTOPRAZOLE 40 MG/10 ML VIAL INJ IV SCH (12:02)
[2020-12-20] MEDS: SODIUM BICARBONATE 50ML VIAL 100 ML in D5W/SOD CHL 0.45% 1,000 ML IV SCH ×3 (12:16)
[2020-12-20] MEDS ORDERED: TPN PER PHARMACY 0 ML IV SCH (15:00)
[2020-12-20] MEDS ORDERED: LIDOCAINE 1% (LOCAL ANESTH.) PF 5ml SDV ID ONE (18:30)
[2020-12-20] MEDS ORDERED: AMINO ACID INFUSION IN D10W 1,000 ML IV NR (20:00)
[2020-12-20] MEDS ORDERED: EPOETIN ALFA-EPBX 10,000 UNIT/1ML VIAL SC ONE (21:00)
[2020-12-20] MEDS: ONDANSETRON HCL 4 MG/2 ML VIAL IV PRN (21:21)
[2020-12-20] MEDS: SODIUM CHLOR 0.9% PF (SALINE LOCK) 10ML VIAL/SYR IV SCH (21:47)
[2020-12-21] VITALS (30 sets, daily range): BP systolic 123–180; BP diastolic 47–71
[2020-12-21] MEDS: SODIUM BICARBONATE 50ML VIAL 100 ML in D5W/SOD CHL 0.45% 1,000 ML IV SCH ×2
[2020-12-21 04:44] LABS: Eosinophils # (auto) 0.1 10 ^3/uL (0-0.8); Hemoglobin 7.9 g/dL (13.5-17.5); Lymphocytes # (auto) 0.8 10 ^3/uL (0.4-5.4); Neutrophils # (auto) 11.8 10 ^3/uL (1.6-8.6)
[2020-12-21 04:49] LABS: Basophils # (auto) 0 10 ^3/uL (0-0.2); Basophils % (auto) 0.2 % (0.0-2.0); Eosinophils % (auto) 0.9 % (0.0-7.0); Hematocrit 23.4 % (41.0-53.0); Lymphocytes % (auto) 5.9 % (10.0-50.0); Mean Corpuscular Hemoglobin 31.3 pg (28.0-32.0); Mean Corpuscular Hgb Conc. 33.9 g/dL (32.0-36.0); Mean Corpuscular Volume 92.2 fL (80.0-100.0); Monocytes % (auto) 7.6 % (0.0-12.0); Neutrophils % (auto) 85.4 % (37.0-80.0); Red Blood Cells 2.54 10^6/uL (4.5-5.90); White Blood Cell 13.8 10^3/uL (4.4-10.8)
[2020-12-21 05:09] LABS: Albumin 2.4 g/dL (3.4-5.0); Calcium 7.3 mg/dL (8.5-10.1); Magnesium 2.3 mg/dL (1.6-2.6); Potassium 4.7 mmol/L (3.5-5.1)
[2020-12-21 05:20] LABS: BUN/Creatinine Ratio 7.9; Bilirubin, Total 0.3 mg/dL (0.2-1.0); Pre Albumin 16.2 mg/dL (20.0-40.0); Total Protein 6.8 g/dL (6.4-8.2)
[2020-12-21 05:43] LABS: Phosphorus 11.7 mg/dL (2.5-4.90)
[2020-12-21] MEDS: metroNIDAZOLE 500MG/100ML 100 ML IV SCH ×3 (05:52→21:32)
[2020-12-21] MEDS: ACCU-CHEK COMFORT CURVE STRIP VI SCH ×4 (05:53→18:00)
[2020-12-21] MEDS: InsuLIN REG 1unit/0.01ml Soln (100units/ml) SC SCH ×4 (05:58→18:00)
[2020-12-21] MEDS: PANTOPRAZOLE 40 MG/10 ML VIAL INJ IV SCH (09:45)
[2020-12-21] MEDS: cefTRIAXone 1GM/50ML D5W 50 ML IV SCH (09:45)
[2020-12-21] MEDS: SODIUM CHLOR 0.9% PF (SALINE LOCK) 10ML VIAL/SYR IV SCH ×2 (10:00→21:33)
[2020-12-21] MEDS ORDERED: ACET30TA15 PO (11:58)
[2020-12-21] MEDS: hydrALAZINE HCL 20 MG/ML VL IV PRN ×3 (12:11→23:22)
[2020-12-21] MEDS: ONDANSETRON HCL 4 MG/2 ML VIAL IV PRN ×2 (13:47→17:10)
[2020-12-21] MEDS: MORPHINE SULFATE 4 MG/ML SYR/VIAL IV PRN (16:06)
[2020-12-21] MEDS ORDERED: TPN PER PHARMACY IV NR ×11 (20:00)
[2020-12-22] VITALS (39 sets, daily range): BP systolic 132–221; BP diastolic 46–102
[2020-12-22] MEDS: ONDANSETRON HCL 4 MG/2 ML VIAL IV PRN ×2 (00:30→17:30)
[2020-12-22 02:40] LABS: Urine Amorphous Crystal FEW /hpf (None Seen); Urine Bacteria FEW /hpf (None Seen); Urine Blood TRACE /uL (Negative); Urine Specific Gravity 1.011 (1.001-1.035); Urine WBC 17 /hpf (0 - 3)
[2020-12-22 03:58] LABS: Basophils # (auto) 0 10 ^3/uL (0-0.2); Eosinophils # (auto) 0 10 ^3/uL (0-0.8); Eosinophils % (auto) 0.4 % (0.0-7.0); Hemoglobin 8.2 g/dL (13.5-17.5); Monocytes # (auto) 0.9 10 ^3/uL (0-1.3)
[2020-12-22 04:00] LABS: Basophils % (auto) 0.2 % (0.0-2.0); Hematocrit 24.9 % (41.0-53.0); Lymphocytes # (auto) 0.7 10 ^3/uL (0.4-5.4); Lymphocytes % (auto) 5.8 % (10.0-50.0); Mean Corpuscular Hemoglobin 30.4 pg (28.0-32.0); Monocytes % (auto) 7.6 % (0.0-12.0); Neutrophils # (auto) 9.9 10 ^3/uL (1.6-8.6); Red Cell Distribution Width 15.9 % (11.8-14.3); White Blood Cell 11.6 10^3/uL (4.4-10.8)
[2020-12-22 04:48] LABS: Potassium 3.8 mmol/L (3.5-5.1)
[2020-12-22 04:49] LABS: Albumin 2.3 g/dL (3.4-5.0); BUN/Creatinine Ratio 6.8; Bilirubin, Total 0.2 mg/dL (0.2-1.0); Phosphorus 6.5 mg/dL (2.5-4.90); Total Protein 6.7 g/dL (6.4-8.2)
[2020-12-22] MEDS: hydrALAZINE HCL 20 MG/ML VL IV PRN ×4 (05:12→23:33)
[2020-12-22] MEDS: InsuLIN REG 1unit/0.01ml Soln (100units/ml) SC SCH ×5 (06:00→23:32)
[2020-12-22] MEDS: ACCU-CHEK COMFORT CURVE STRIP VI SCH ×5 (06:00→23:32)
[2020-12-22] MEDS: metroNIDAZOLE 500MG/100ML 100 ML IV SCH ×3 (06:12→21:11)
[2020-12-22] MEDS: cefTRIAXone 1GM/50ML D5W 50 ML IV SCH (08:40)
[2020-12-22] MEDS: SODIUM CHLOR 0.9% PF (SALINE LOCK) 10ML VIAL/SYR IV SCH ×2 (10:00→21:11)
[2020-12-22] MEDS: PANTOPRAZOLE 40 MG/10 ML VIAL INJ IV SCH (10:28)
[2020-12-22] MEDS ORDERED: PROMETHAZINE HCL 25 MG/ML 1ML IV PRN (11:00)
[2020-12-22] MEDS ORDERED: CALCIUM GLUC 1,000mg/50ml-NS 50 ML IV ONE (11:00)
[2020-12-22] MEDS ORDERED: HYDROmorphone HCL 2 MG/ML VL IV PRN (11:00)
[2020-12-22] MEDS ORDERED: HYDROmorphone HCL 2 MG/ML VL ONE (11:26)
[2020-12-22] MEDS ORDERED: PROMETHAZINE HCL 25 MG/ML 1ML ONE (11:30)
[2020-12-22] MEDS ORDERED: TPN PER PHARMACY IV NR ×21 (14:00→20:00)
[2020-12-22] MEDS: METOCLOPRAMIDE HCL 5MG/ml INJ 2ml VIAL IV SCH (17:33)
[2020-12-23 05:07] VITALS: BP 181/90
[2020-12-23] MEDS: METOCLOPRAMIDE HCL 5MG/ml INJ 2ml VIAL IV SCH ×3 (05:43→22:07)
[2020-12-23] MEDS: metroNIDAZOLE 500MG/100ML 100 ML IV SCH ×3 (05:43→22:07)
[2020-12-23] MEDS: hydrALAZINE HCL 20 MG/ML VL IV PRN ×3 (05:49→19:34)
[2020-12-23] MEDS: ACCU-CHEK COMFORT CURVE STRIP VI SCH ×3 (05:50→17:57)
[2020-12-23] MEDS: InsuLIN REG 1unit/0.01ml Soln (100units/ml) SC SCH ×3 (05:51→17:57)
[2020-12-23 06:06] LABS: Potassium 3.5 mmol/L (3.5-5.1)
[2020-12-23 06:15] LABS: Albumin 2.3 g/dL (3.4-5.0); BUN/Creatinine Ratio 7.3; Bilirubin, Total 0.3 mg/dL (0.2-1.0); Calcium 7.1 mg/dL (8.5-10.1); Magnesium 2.1 mg/dL (1.6-2.6); Phosphorus 6.6 mg/dL (2.5-4.90); Total Protein 6.4 g/dL (6.4-8.2)
[2020-12-23] MEDS: cefTRIAXone 1GM/50ML D5W 50 ML IV SCH (08:38)
[2020-12-23 09:00] VITALS: BP 160/88
[2020-12-23] MEDS: SODIUM CHLOR 0.9% PF (SALINE LOCK) 10ML VIAL/SYR IV SCH ×2 (10:28→22:00)
[2020-12-23] MEDS: PANTOPRAZOLE 40 MG/10 ML VIAL INJ IV SCH (10:28)
[2020-12-23] MEDS: ONDANSETRON HCL 4 MG/2 ML VIAL IV PRN ×2 (11:39→20:54)
[2020-12-23 13:00] VITALS: BP 193/90
[2020-12-23] MEDS ORDERED: AMLO-496 PO (13:13)
[2020-12-23] MEDS ORDERED: ACE3T PO (13:26)
[2020-12-23 17:00] VITALS: BP 189/97
[2020-12-23 22:00] VITALS: BP 156/86
[2020-12-24] MEDS: ACETAMINOPHEN 325 MG TAB PO PRN ×2 (01:02→21:00)
[2020-12-24] MEDS: ONDANSETRON HCL 4 MG/2 ML VIAL IV PRN ×2 (01:02→08:53)
[2020-12-24 05:00] VITALS: BP 189/98
[2020-12-24] MEDS: METOCLOPRAMIDE HCL 5MG/ml INJ 2ml VIAL IV SCH ×3 (05:53→21:07)
[2020-12-24] MEDS: metroNIDAZOLE 500MG/100ML 100 ML IV SCH ×3 (05:54→21:07)
[2020-12-24] MEDS: hydrALAZINE HCL 20 MG/ML VL IV PRN ×3 (05:54→21:00)
[2020-12-24 06:36] LABS: Hemoglobin 8.5 g/dL (13.5-17.5); Mean Corpuscular Hemoglobin 30.2 pg (28.0-32.0); Mean Corpuscular Hgb Conc. 32.7 g/dL (32.0-36.0); Mean Corpuscular Volume 92.4 fL (80.0-100.0); Red Blood Cells 2.82 10^6/uL (4.5-5.90); Red Cell Distribution Width 15.7 % (11.8-14.3); White Blood Cell 12.2 10^3/uL (4.4-10.8)
[2020-12-24 06:45] LABS: Band Neutrophils % (manual) 0; Basophils % (manual) 0 (0.0-2.0); Blast Cells 0; Promyelocytes % 0; Reactive Lymphocytes 0
[2020-12-24 06:57] LABS: BUN/Creatinine Ratio 7.6; Calcium 7.1 mg/dL (8.5-10.1); Magnesium 2.2 mg/dL (1.6-2.6)
[2020-12-24 07:33] LABS: Eosinophils % (manual) 1 (0-7); Lymphocytes % (manual) 12 (10.0-50.0); Metamyelocytes % 2; Monocytes % (manual) 7 (0-12); Myelocytes % 1
[2020-12-24] MEDS: SODIUM CHLOR 0.9% PF (SALINE LOCK) 10ML VIAL/SYR IV SCH ×2 (08:53→21:07)
[2020-12-24] MEDS: cefTRIAXone 1GM/50ML D5W 50 ML IV SCH (08:53)
[2020-12-24] MEDS: PANTOPRAZOLE 40 MG/10 ML VIAL INJ IV SCH (08:53)
[2020-12-24 09:00] VITALS: BP 172/89
[2020-12-24 13:00] VITALS: BP 143/69
[2020-12-24 17:40] VITALS: BP 165/97
[2020-12-24 22:27] VITALS: BP 177/80
[2020-12-25] MEDS ORDERED: MORPHINE SULFATE INJECTION 2 MG/ML SYRG IV PRN (00:15)
[2020-12-25] MEDS: ONDANSETRON HCL 4 MG/2 ML VIAL IV PRN ×2 (00:29→10:05)
[2020-12-25 04:54] VITALS: BP 179/91
[2020-12-25] MEDS: metroNIDAZOLE 500MG/100ML 100 ML IV SCH ×3 (05:34→21:43)
[2020-12-25] MEDS: METOCLOPRAMIDE HCL 5MG/ml INJ 2ml VIAL IV SCH ×3 (05:34→21:43)
[2020-12-25] MEDS: hydrALAZINE HCL 20 MG/ML VL IV PRN ×2 (05:35→10:05)
[2020-12-25] MEDS: PANTOPRAZOLE 40 MG/10 ML VIAL INJ IV SCH (08:54)
[2020-12-25] MEDS: SODIUM CHLOR 0.9% PF (SALINE LOCK) 10ML VIAL/SYR IV SCH ×2 (08:54→21:43)
[2020-12-25] MEDS: cefTRIAXone 1GM/50ML D5W 50 ML IV SCH (08:54)
[2020-12-25 09:02] VITALS: BP 178/92
[2020-12-25] MEDS: hydrALAZINE HCL 25 MG TAB PO SCH ×2 (09:36→21:43)
[2020-12-25 13:00] VITALS: BP 161/85
[2020-12-25] MEDS: ACETAMINOPHEN 325 MG TAB PO PRN (18:06)
[2020-12-25 22:00] VITALS: BP 169/83
[2020-12-26 05:22] VITALS: BP 188/92
[2020-12-26 05:43] LABS: Hemoglobin 8.4 g/dL (13.5-17.5)
[2020-12-26 05:45] LABS: Hematocrit 25.9 % (41.0-53.0); Mean Corpuscular Hemoglobin 30.1 pg (28.0-32.0); Mean Corpuscular Hgb Conc. 32.5 g/dL (32.0-36.0); Mean Corpuscular Volume 92.7 fL (80.0-100.0); Red Cell Distribution Width 15.8 % (11.8-14.3)
[2020-12-26 05:53] LABS: Band Neutrophils % (manual) 0; Basophils % (manual) 0 (0.0-2.0); Blast Cells 0; Myelocytes % 0; Promyelocytes % 0; Reactive Lymphocytes 0
[2020-12-26 05:57] LABS: Potassium 3.9 mmol/L (3.5-5.1)
[2020-12-26] MEDS: metroNIDAZOLE 500MG/100ML 100 ML IV SCH ×3 (06:00→22:01)
[2020-12-26] MEDS: METOCLOPRAMIDE HCL 5MG/ml INJ 2ml VIAL IV SCH (06:00)
[2020-12-26] MEDS: ONDANSETRON HCL 4 MG/2 ML VIAL IV PRN (06:01)
[2020-12-26] MEDS: hydrALAZINE HCL 20 MG/ML VL IV PRN ×2 (06:01→22:40)
[2020-12-26 06:07] LABS: BUN/Creatinine Ratio 7.1; Calcium 7.4 mg/dL (8.5-10.1)
[2020-12-26 06:15] LABS: Eosinophils % (manual) 2 (0-7); Lymphocytes % (manual) 12 (10.0-50.0); Metamyelocytes % 1; Monocytes % (manual) 7 (0-12)
[2020-12-26] MEDS ORDERED: SODIUM CHL 0.9% 1000 ML BAG XX ONE (07:00)
[2020-12-26] MEDS: hydrALAZINE HCL 25 MG TAB PO SCH ×2 (08:53→22:04)
[2020-12-26] MEDS: SODIUM CHLOR 0.9% PF (SALINE LOCK) 10ML VIAL/SYR IV SCH ×2 (08:53→22:01)
[2020-12-26] MEDS: cefTRIAXone 1GM/50ML D5W 50 ML IV SCH (08:53)
[2020-12-26] MEDS: PANTOPRAZOLE 40 MG/10 ML VIAL INJ IV SCH ×2 (08:53→22:01)
[2020-12-26 08:54] VITALS: BP 163/90
[2020-12-26 12:55] VITALS: BP 157/77
[2020-12-26] MEDS: SUCRALFATE 1 GM/10 ML ORAL SUSP PO SCH ×3 (13:09→22:01)
[2020-12-26] MEDS: PROMETHAZINE HCL 25 MG/ML 1ML IV PRN (16:11)
[2020-12-26] MEDS ORDERED: EPOETIN ALFA-EPBX 10,000 UNIT/1ML VIAL SC ONE (21:00)
[2020-12-26 22:00] VITALS: BP 171/85
[2020-12-27 05:00] VITALS: BP 165/79
[2020-12-27] MEDS: metroNIDAZOLE 500MG/100ML 100 ML IV SCH ×3 (05:29→21:09)
[2020-12-27] MEDS: SUCRALFATE 1 GM/10 ML ORAL SUSP PO SCH ×4 (05:29→21:09)
[2020-12-27] MEDS: hydrALAZINE HCL 20 MG/ML VL IV PRN ×2 (05:37→22:19)
[2020-12-27 06:57] LABS: Eosinophils # (auto) 0.2 10 ^3/uL (0-0.8); Mean Corpuscular Hemoglobin 30.6 pg (28.0-32.0); Neutrophils # (auto) 13.8 10 ^3/uL (1.6-8.6)
[2020-12-27 07:00] LABS: Basophils # (auto) 0.1 10 ^3/uL (0-0.2); Basophils % (auto) 0.3 % (0.0-2.0); Eosinophils % (auto) 1.4 % (0.0-7.0); Hematocrit 24.3 % (41.0-53.0); Lymphocytes # (auto) 1.2 10 ^3/uL (0.4-5.4); Lymphocytes % (auto) 7.3 % (10.0-50.0); Mean Corpuscular Hgb Conc. 32.9 g/dL (32.0-36.0); Monocytes # (auto) 1.2 10 ^3/uL (0-1.3); Monocytes % (auto) 7.5 % (0.0-12.0); Neutrophils % (auto) 83.5 % (37.0-80.0); Red Blood Cells 2.61 10^6/uL (4.5-5.90); Red Cell Distribution Width 15.7 % (11.8-14.3); White Blood Cell 16.5 10^3/uL (4.4-10.8)
[2020-12-27] MEDS ORDERED: SODIUM CHL 0.9% 1000 ML BAG XX ONE (07:00)
[2020-12-27 07:03] LABS: BUN/Creatinine Ratio 7.3; Calcium 7.1 mg/dL (8.5-10.1)
[2020-12-27 09:00] VITALS: BP 173/82
[2020-12-27] MEDS: PANTOPRAZOLE 40 MG/10 ML VIAL INJ IV SCH ×2 (09:30→21:09)
[2020-12-27] MEDS: SODIUM CHLOR 0.9% PF (SALINE LOCK) 10ML VIAL/SYR IV SCH ×2 (09:30→21:10)
[2020-12-27] MEDS: PROMETHAZINE HCL 25 MG/ML 1ML IV PRN (09:34)
[2020-12-27] MEDS: hydrALAZINE HCL 25 MG TAB PO SCH ×2 (10:00→21:14)
[2020-12-27 13:00] VITALS: BP 134/77
[2020-12-27 13:12] VITALS: BP 142/77
[2020-12-27 17:00] VITALS: BP 150/90
[2020-12-27] MEDS ORDERED: EPOETIN ALFA-EPBX 10,000 UNIT/1ML VIAL SC ONE ×2 (21:00)
[2020-12-27 22:00] VITALS: BP 172/86
[2020-12-27] MEDS: ERTAPENEM SOD INJ 0.5 GM in SODIUM CHL 0.9% 50 ML IV SCH (22:18)
[2020-12-28 05:00] VITALS: BP 156/79
[2020-12-28] MEDS: metroNIDAZOLE 500MG/100ML 100 ML IV SCH ×3 (05:05→21:36)
[2020-12-28] MEDS: SUCRALFATE 1 GM/10 ML ORAL SUSP PO SCH ×5 (06:29→21:43)
[2020-12-28 09:06] VITALS: BP_SYST 165
[2020-12-28] MEDS ORDERED: IOHEXOL 300 MG/ML 100ML BOTTLE IJ ONE ×2 (09:56→11:39)
[2020-12-28] MEDS ORDERED: ERTAPENEM SOD 1 GM INJ VIAL IM SCH (10:00)
[2020-12-28] MEDS: PANTOPRAZOLE 40 MG/10 ML VIAL INJ IV SCH ×2 (11:04→21:36)
[2020-12-28] MEDS: SODIUM CHLOR 0.9% PF (SALINE LOCK) 10ML VIAL/SYR IV SCH ×2 (11:05→21:36)
[2020-12-28] MEDS: hydrALAZINE HCL 25 MG TAB PO SCH ×2 (11:05→21:37)
[2020-12-28 12:38] LABS: Potassium 3.5 mmol/L (3.5-5.1)
[2020-12-28 12:45] LABS: BUN/Creatinine Ratio 5.7; Calcium 6.9 mg/dL (8.5-10.1)
[2020-12-28] MEDS: hydrALAZINE HCL 20 MG/ML VL IV PRN ×2 (12:48→18:04)
[2020-12-28 13:19] VITALS: BP 181/84
[2020-12-28 16:56] VITALS: BP 151/91
[2020-12-28] MEDS: ERTAPENEM SOD INJ 0.5 GM in SODIUM CHL 0.9% 50 ML IV SCH (21:01)
[2020-12-28 22:00] VITALS: BP 156/94
[2020-12-29 05:00] VITALS: BP 156/80
[2020-12-29] MEDS: metroNIDAZOLE 500MG/100ML 100 ML IV SCH ×3 (05:11→21:40)
[2020-12-29] MEDS: SUCRALFATE 1 GM/10 ML ORAL SUSP PO SCH ×4 (05:41→21:40)
[2020-12-29 06:09] LABS: Calcium 6.8 mg/dL (8.5-10.1); Potassium 3.4 mmol/L (3.5-5.1)
[2020-12-29 06:13] LABS: BUN/Creatinine Ratio 5.6
[2020-12-29] MEDS ORDERED: SODIUM CHL 0.9% 1000 ML BAG XX ONE (07:00)
[2020-12-29 09:30] VITALS: BP 134/79
[2020-12-29] MEDS: SODIUM CHLOR 0.9% PF (SALINE LOCK) 10ML VIAL/SYR IV SCH ×2 (10:00→22:00)
[2020-12-29] MEDS ORDERED: GOLYTELY 4L KIT PO ONE (11:15)
[2020-12-29] MEDS ORDERED: CEFTRIAXONE SODIUM 2 GM in D5W 5% 50 ML IV ONE (11:15)
[2020-12-29] MEDS ORDERED: FLEET ENEMA(ADULT) 135 ML PR ONE (11:15)
[2020-12-29] MEDS: hydrALAZINE HCL 25 MG TAB PO SCH ×2 (12:00→21:41)
[2020-12-29 12:20] LABS: INR 1.12 (0.9-1.15); Partial Thromboplastin Time 30.2 sec (23.0-31.2)
[2020-12-29] MEDS: PANTOPRAZOLE 40 MG/10 ML VIAL INJ IV SCH ×2 (15:52→21:40)
[2020-12-29 16:30] VITALS: BP 135/80
[2020-12-29] MEDS ORDERED: EPOETIN ALFA-EPBX 10,000 UNIT/1ML VIAL SC ONE (21:00)
[2020-12-29 22:00] VITALS: BP 160/89
[2020-12-30] MEDS: hydrALAZINE HCL 20 MG/ML VL IV PRN ×3 (04:17→22:29)
[2020-12-30 05:11] VITALS: BP 193/93
[2020-12-30] MEDS: metroNIDAZOLE 500MG/100ML 100 ML IV SCH ×3 (05:34→21:38)
[2020-12-30 06:02] VITALS: BP 148/86
[2020-12-30] MEDS: SUCRALFATE 1 GM/10 ML ORAL SUSP PO SCH ×4 (07:00→22:00)
[2020-12-30 09:00] VITALS: BP 159/92
[2020-12-30] MEDS ORDERED: cefTRIAXone 1GM/50ML D5W 50 ML IV ONE (09:39)
[2020-12-30] MEDS: hydrALAZINE HCL 25 MG TAB PO SCH ×2 (10:00→22:00)
[2020-12-30] MEDS: PANTOPRAZOLE 40 MG/10 ML VIAL INJ IV SCH ×2 (10:00→22:29)
[2020-12-30] MEDS: SODIUM CHLOR 0.9% PF (SALINE LOCK) 10ML VIAL/SYR IV SCH (10:00)
[2020-12-30] MEDS ORDERED: HYDROmorphone HCL 2 MG/ML VL ONE (10:30)
[2020-12-30] MEDS ORDERED: fentaNYL CITRATE 100 MCG/2 ML VL ONE (10:30)
[2020-12-30] MEDS ORDERED: MIDAZOLAM HCL 2MG/2ML 2ml VIAL (1mg/ml) ONE (10:30)
[2020-12-30] MEDS ORDERED: DexAMETHasone SOD PHOS 10MG/1ML VIAL INJ ONE (11:07)
[2020-12-30] MEDS ORDERED: ETOMIDATE (2MG/ML) 20ML VIAL IV ONE (11:07)
[2020-12-30] MEDS ORDERED: PROPOFOL 10 MG/ML 20 ML IV ONE (11:13)
[2020-12-30] MEDS ORDERED: ONDANSETRON HCL 4 MG/2 ML VIAL IV PRN ×2 (11:30)
[2020-12-30] MEDS ORDERED: hydrALAZINE HCL 20 MG/ML VL IV PRN (11:30)
[2020-12-30] MEDS ORDERED: MORPHINE SULFATE 4 MG/ML SYR/VIAL IV PRN (11:30)
[2020-12-30] MEDS ORDERED: ACCU-CHEK COMFORT CURVE STRIP VI ONE (11:30)
[2020-12-30] MEDS ORDERED: MORPHINE SULFATE INJECTION 2 MG/ML SYRG IV PRN (11:30)
[2020-12-30] MEDS ORDERED: HYDROmorphone HCL 2 MG/ML VL IV PRN ×2 (11:30)
[2020-12-30] MEDS ORDERED: fentaNYL CITRATE 100 MCG/2 ML VL IV PRN ×2 (11:30)
[2020-12-30] MEDS ORDERED: MIDAZOLAM HCL 2MG/2ML 2ml VIAL (1mg/ml) IV PRN ×2 (11:30)
[2020-12-30] MEDS ORDERED: LABETALOL HCL 5 MG/ML 4ML SYRINGE IV PRN (11:30)
[2020-12-30] MEDS ORDERED: ePHEDrine SULFATE 50 MG/ML AMP IV PRN ×2 (11:30)
[2020-12-30] MEDS ORDERED: SUGAMMADEX 200mg/2ml Vial (100MG/ML) IV ONE (12:23)
[2020-12-30] MEDS: LABETALOL HCL 5 MG/ML 4ML SYRINGE IV PRN ×2 (13:03→13:25)
[2020-12-30 16:24] VITALS: BP 159/93
[2020-12-30] MEDS: PROMETHAZINE HCL 25 MG/ML 1ML IV PRN (20:33)
[2020-12-30] MEDS: ERTAPENEM SOD INJ 0.5 GM in SODIUM CHL 0.9% 50 ML IV SCH (23:30)
[2020-12-31 05:00] VITALS: BP 158/75
[2020-12-31] MEDS: SUCRALFATE 1 GM/10 ML ORAL SUSP PO SCH ×2 (05:19→11:07)
[2020-12-31] MEDS: SODIUM CHLOR 0.9% PF (SALINE LOCK) 10ML VIAL/SYR IV SCH ×3 (06:16→21:45)
[2020-12-31] MEDS: metroNIDAZOLE 500MG/100ML 100 ML IV SCH ×3 (06:16→21:44)
[2020-12-31] MEDS: hydrALAZINE HCL 20 MG/ML VL IV PRN ×2 (06:17→17:40)
[2020-12-31 07:27] LABS: Basophils # (auto) 0 10 ^3/uL (0-0.2); Eosinophils # (auto) 0 10 ^3/uL (0-0.8); Hemoglobin 7.1 g/dL (13.5-17.5); Lymphocytes # (auto) 0.9 10 ^3/uL (0.4-5.4); Mean Corpuscular Hgb Conc. 32.4 g/dL (32.0-36.0); Monocytes # (auto) 1.5 10 ^3/uL (0-1.3); Nucleated Red Blood Cells % 0.1 %; Red Blood Cells 2.38 10^6/uL (4.5-5.90)
[2020-12-31 07:29] LABS: Hematocrit 21.9 % (41.0-53.0); Lymphocytes % (auto) 5.4 % (10.0-50.0); Mean Corpuscular Hemoglobin 29.9 pg (28.0-32.0); Mean Corpuscular Volume 92.3 fL (80.0-100.0); Monocytes % (auto) 8.5 % (0.0-12.0); Neutrophils # (auto) 14.7 10 ^3/uL (1.6-8.6); Neutrophils % (auto) 86.1 % (37.0-80.0); Red Cell Distribution Width 16.2 % (11.8-14.3); White Blood Cell 17.1 10^3/uL (4.4-10.8)
[2020-12-31 07:42] LABS: Potassium 3.9 mmol/L (3.5-5.1)
[2020-12-31 07:51] LABS: Albumin 2.4 g/dL (3.4-5.0); BUN/Creatinine Ratio 3.9; Bilirubin, Total 0.4 mg/dL (0.2-1.0); Magnesium 2.2 mg/dL (1.6-2.6); Total Protein 6.2 g/dL (6.4-8.2)
[2020-12-31 09:00] VITALS: BP 146/79
[2020-12-31] MEDS: PANTOPRAZOLE 40 MG/10 ML VIAL INJ IV SCH ×2 (09:51→21:44)
[2020-12-31] MEDS: hydrALAZINE HCL 25 MG TAB PO SCH (09:52)
[2020-12-31] MEDS ORDERED: TPN PER PHARMACY 0 ML IV SCH (10:00)
[2020-12-31] MEDS ORDERED: LORazepam 2MG/ML-1ML VIAL IV PRN (11:45)
[2020-12-31] MEDS ORDERED: D5W/SOD CHL 0.45% 1,000 ML IV SCH (12:00)
[2020-12-31 13:00] VITALS: BP 142/74
[2020-12-31] MEDS: HYDROmorphone HCL 2 MG/ML VL IV PRN ×2 (15:34→20:11)
[2020-12-31 16:42] VITALS: BP 158/79
[2020-12-31] MEDS ORDERED: TPN PER PHARMACY IV NR ×10 (20:00)
[2020-12-31] MEDS: ERTAPENEM SOD INJ 0.5 GM in SODIUM CHL 0.9% 50 ML IV SCH (21:44)
[2020-12-31 22:00] VITALS: BP 144/66
[2020-12-31] MEDS: InsuLIN REG 1unit/0.01ml Soln (100units/ml) SC SCH (23:24)
[2020-12-31] MEDS: ACCU-CHEK COMFORT CURVE STRIP VI SCH (23:24)
[2021-01-01] VITALS (8 sets, daily range): BP systolic 128–200; BP diastolic 67–97
[2021-01-01] MEDS ORDERED: DEXTROSE (50%) 50ML SYRG IV SCH
[2021-01-01] MEDS: HYDROmorphone HCL 2 MG/ML VL IV PRN ×4 (00:46→20:07)
[2021-01-01] MEDS: metroNIDAZOLE 500MG/100ML 100 ML IV SCH ×3 (05:37→21:31)
[2021-01-01] MEDS: ACCU-CHEK COMFORT CURVE STRIP VI SCH ×4 (06:00→23:54)
[2021-01-01] MEDS: InsuLIN REG 1unit/0.01ml Soln (100units/ml) SC SCH ×4 (06:00→23:54)
[2021-01-01] MEDS: hydrALAZINE HCL 20 MG/ML VL IV PRN ×2 (06:30→13:16)
[2021-01-01 07:02] LABS: Eosinophils # (auto) 0.2 10 ^3/uL (0-0.8); Monocytes # (auto) 1.3 10 ^3/uL (0-1.3); Neutrophils # (auto) 15.3 10 ^3/uL (1.6-8.6); White Blood Cell 17.8 10^3/uL (4.4-10.8)
[2021-01-01 07:05] LABS: Basophils # (auto) 0.1 10 ^3/uL (0-0.2); Basophils % (auto) 0.3 % (0.0-2.0); Eosinophils % (auto) 1.2 % (0.0-7.0); Hematocrit 21.1 % (41.0-53.0); Lymphocytes % (auto) 5.4 % (10.0-50.0); Mean Corpuscular Hemoglobin 30.2 pg (28.0-32.0); Mean Corpuscular Hgb Conc. 32.2 g/dL (32.0-36.0); Mean Corpuscular Volume 93.8 fL (80.0-100.0); Neutrophils % (auto) 86.1 % (37.0-80.0); Red Blood Cells 2.25 10^6/uL (4.5-5.90); Red Cell Distribution Width 16.4 % (11.8-14.3)
[2021-01-01 07:15] LABS: Hemoglobin 6.8 g/dL (13.5-17.5)
[2021-01-01 07:21] LABS: Albumin 2.1 g/dL (3.4-5.0); Calcium 6.7 mg/dL (8.5-10.1); Magnesium 2.2 mg/dL (1.6-2.6); Potassium 3.5 mmol/L (3.5-5.1)
[2021-01-01 07:24] LABS: BUN/Creatinine Ratio 3.7; Bilirubin, Total 0.3 mg/dL (0.2-1.0); Total Protein 5.5 g/dL (6.4-8.2)
[2021-01-01 07:27] LABS: Phosphorus 5.8 mg/dL (2.5-4.90); Pre Albumin 24.9 mg/dL (20.0-40.0)
[2021-01-01] MEDS: SODIUM CHLOR 0.9% PF (SALINE LOCK) 10ML VIAL/SYR IV SCH ×2 (10:25→21:32)
[2021-01-01] MEDS: PANTOPRAZOLE 40 MG/10 ML VIAL INJ IV SCH ×2 (10:25→21:32)
[2021-01-01] MEDS ORDERED: CALCIUM GLUC 1,000mg/50ml-NS 50 ML IV ONE (14:00)
[2021-01-01] MEDS ORDERED: TPN PER PHARMACY IV NR ×10 (20:00)
[2021-01-01] MEDS: ERTAPENEM SOD INJ 0.5 GM in SODIUM CHL 0.9% 50 ML IV SCH (21:32)
[2021-01-02] VITALS (9 sets, daily range): BP systolic 126–202; BP diastolic 67–113
[2021-01-02] MEDS: HYDROmorphone HCL 2 MG/ML VL IV PRN ×3 (01:03→22:09)
[2021-01-02] MEDS: metroNIDAZOLE 500MG/100ML 100 ML IV SCH ×3 (05:05→21:21)
[2021-01-02] MEDS: hydrALAZINE HCL 20 MG/ML VL IV PRN ×3 (05:05→22:08)
[2021-01-02] MEDS: ACCU-CHEK COMFORT CURVE STRIP VI SCH ×3 (05:06→17:16)
[2021-01-02] MEDS: InsuLIN REG 1unit/0.01ml Soln (100units/ml) SC SCH ×3 (05:06→17:15)
[2021-01-02 06:18] LABS: Basophils # (auto) 0.1 10 ^3/uL (0-0.2); Eosinophils # (auto) 0.3 10 ^3/uL (0-0.8); Hemoglobin 7.7 g/dL (13.5-17.5)
[2021-01-02 06:20] LABS: Basophils % (auto) 0.6 % (0.0-2.0); Eosinophils % (auto) 1.9 % (0.0-7.0); Hematocrit 23.2 % (41.0-53.0); Lymphocytes % (auto) 6.4 % (10.0-50.0); Mean Corpuscular Hemoglobin 30.3 pg (28.0-32.0); Mean Corpuscular Hgb Conc. 33.2 g/dL (32.0-36.0); Mean Corpuscular Volume 91.1 fL (80.0-100.0); Monocytes % (auto) 6.9 % (0.0-12.0); Neutrophils # (auto) 12.5 10 ^3/uL (1.6-8.6); Neutrophils % (auto) 84.2 % (37.0-80.0); Nucleated Red Blood Cells % 0.1 %; Red Blood Cells 2.54 10^6/uL (4.5-5.90); Red Cell Distribution Width 16.8 % (11.8-14.3); White Blood Cell 14.9 10^3/uL (4.4-10.8)
[2021-01-02 06:40] LABS: Potassium 3.2 mmol/L (3.5-5.1)
[2021-01-02 06:49] LABS: Albumin 2.1 g/dL (3.4-5.0); BUN/Creatinine Ratio 3.3; Bilirubin, Total 0.3 mg/dL (0.2-1.0); Calcium 6.9 mg/dL (8.5-10.1); Phosphorus 3.5 mg/dL (2.5-4.90); Total Protein 5.6 g/dL (6.4-8.2)
[2021-01-02] MEDS: PANTOPRAZOLE 40 MG/10 ML VIAL INJ IV SCH ×2 (09:11→21:21)
[2021-01-02] MEDS ORDERED: POTASSIUM CHL 20MEQ/100ML 100 ML IV ONE (09:30)
[2021-01-02] MEDS: SODIUM CHLOR 0.9% PF (SALINE LOCK) 10ML VIAL/SYR IV SCH ×2 (09:37→21:21)
[2021-01-02] MEDS: POTASSIUM CHL 20MEQ/100ML 100 ML IV SCH ×2 (11:45→13:45)
[2021-01-02] MEDS ORDERED: TPN PER PHARMACY IV NR ×10 (20:00)
[2021-01-02] MEDS: ERTAPENEM SOD INJ 0.5 GM in SODIUM CHL 0.9% 50 ML IV SCH (21:21)
[2021-01-03 05:00] VITALS: BP 163/79
[2021-01-03] MEDS: HYDROmorphone HCL 2 MG/ML VL IV PRN (05:33)
[2021-01-03] MEDS: metroNIDAZOLE 500MG/100ML 100 ML IV SCH ×3 (05:33→21:48)
[2021-01-03] MEDS: InsuLIN REG 1unit/0.01ml Soln (100units/ml) SC SCH ×4 (05:48→18:00)
[2021-01-03] MEDS: hydrALAZINE HCL 20 MG/ML VL IV PRN ×3 (05:48→23:48)
[2021-01-03] MEDS: ACCU-CHEK COMFORT CURVE STRIP VI SCH ×4 (05:48→18:00)
[2021-01-03 06:36] LABS: Basophils # (auto) 0.1 10 ^3/uL (0-0.2); Basophils % (auto) 0.5 % (0.0-2.0); Eosinophils # (auto) 0.4 10 ^3/uL (0-0.8); Eosinophils % (auto) 2.9 % (0.0-7.0); Hematocrit 22.6 % (41.0-53.0); Hemoglobin 7.6 g/dL (13.5-17.5); Lymphocytes % (auto) 6.4 % (10.0-50.0); Mean Corpuscular Hemoglobin 30.8 pg (28.0-32.0); Mean Corpuscular Hgb Conc. 33.4 g/dL (32.0-36.0); Mean Corpuscular Volume 92.2 fL (80.0-100.0); Monocytes # (auto) 1.1 10 ^3/uL (0-1.3); Monocytes % (auto) 7.1 % (0.0-12.0); Neutrophils # (auto) 12.8 10 ^3/uL (1.6-8.6); Neutrophils % (auto) 83.1 % (37.0-80.0); Red Blood Cells 2.45 10^6/uL (4.5-5.90); Red Cell Distribution Width 16.7 % (11.8-14.3); White Blood Cell 15.4 10^3/uL (4.4-10.8)
[2021-01-03 06:52] LABS: Albumin 2.2 g/dL (3.4-5.0); Calcium 6.9 mg/dL (8.5-10.1); Potassium 3.8 mmol/L (3.5-5.1)
[2021-01-03 06:56] LABS: BUN/Creatinine Ratio 4.2; Bilirubin, Total 0.3 mg/dL (0.2-1.0); Phosphorus 2.8 mg/dL (2.5-4.90); Total Protein 5.7 g/dL (6.4-8.2)
[2021-01-03] MEDS ORDERED: SODIUM CHL 0.9% 1000 ML BAG XX ONE (07:00)
[2021-01-03 08:30] VITALS: BP 165/78
[2021-01-03] MEDS: PANTOPRAZOLE 40 MG/10 ML VIAL INJ IV SCH ×2 (10:03→21:49)
[2021-01-03] MEDS: SODIUM CHLOR 0.9% PF (SALINE LOCK) 10ML VIAL/SYR IV SCH ×2 (10:03→21:49)
[2021-01-03 12:30] VITALS: BP 172/88
[2021-01-03 17:00] VITALS: BP 158/76
[2021-01-03] MEDS ORDERED: TPN PER PHARMACY IV NR ×19 (20:00)
[2021-01-03] MEDS ORDERED: EPOETIN ALFA-EPBX 10,000 UNIT/1ML VIAL SC ONE (21:00)
[2021-01-03] MEDS: ERTAPENEM SOD INJ 0.5 GM in SODIUM CHL 0.9% 50 ML IV SCH (21:49)
[2021-01-03 21:51] VITALS: BP 159/80
[2021-01-04 05:00] VITALS: BP 139/78
[2021-01-04] MEDS: metroNIDAZOLE 500MG/100ML 100 ML IV SCH ×3 (05:45→23:04)
[2021-01-04] MEDS: InsuLIN REG 1unit/0.01ml Soln (100units/ml) SC SCH ×5 (05:51→23:52)
[2021-01-04] MEDS: ACCU-CHEK COMFORT CURVE STRIP VI SCH ×5 (05:52→23:52)
[2021-01-04 06:22] LABS: Albumin 2.2 g/dL (3.4-5.0); Calcium 6.9 mg/dL (8.5-10.1); Magnesium 1.9 mg/dL (1.6-2.6); Potassium 3.8 mmol/L (3.5-5.1)
[2021-01-04 06:26] LABS: BUN/Creatinine Ratio 5.2; Bilirubin, Total 0.4 mg/dL (0.2-1.0); Phosphorus 2.9 mg/dL (2.5-4.90); Total Protein 5.5 g/dL (6.4-8.2)
[2021-01-04 09:00] VITALS: BP 155/79
[2021-01-04] MEDS: PANTOPRAZOLE 40 MG/10 ML VIAL INJ IV SCH ×2 (09:30→23:04)
[2021-01-04] MEDS: LINEZOLID 600MG/300ML 300 ML IV SCH ×2 (09:32→23:05)
[2021-01-04] MEDS: SODIUM CHLOR 0.9% PF (SALINE LOCK) 10ML VIAL/SYR IV SCH ×2 (09:32→23:04)
[2021-01-04 13:00] VITALS: BP 154/77
[2021-01-04] MEDS: PIPERACILLIN-TAZOB 2.25GM 50 ML IV SCH ×2 (13:58→23:05)
[2021-01-04 17:00] VITALS: BP 169/93
[2021-01-04 18:56] VITALS: BP 129/72
[2021-01-04] MEDS ORDERED: ERTAPENEM SOD INJ 0.5 GM in SODIUM CHL 0.9% 50 ML IV SCH (20:00)
[2021-01-04] MEDS ORDERED: EPOETIN ALFA-EPBX 10,000 UNIT/1ML VIAL SC ONE (21:00)
[2021-01-04 22:00] VITALS: BP 147/80
[2021-01-05 05:00] VITALS: BP 159/87
[2021-01-05 05:56] LABS: Basophils # (auto) 0.1 10 ^3/uL (0-0.2); Eosinophils # (auto) 0.3 10 ^3/uL (0-0.8); Neutrophils % (auto) 73.7 % (37.0-80.0); Nucleated Red Blood Cells % 0.1 %
[2021-01-05 05:59] LABS: Hematocrit 24.1 % (41.0-53.0); Hemoglobin 8.4 g/dL (13.5-17.5); Lymphocytes # (auto) 1.3 10 ^3/uL (0.4-5.4); Lymphocytes % (auto) 12.7 % (10.0-50.0); Mean Corpuscular Hemoglobin 31.8 pg (28.0-32.0); Mean Corpuscular Hgb Conc. 34.7 g/dL (32.0-36.0); Mean Corpuscular Volume 91.4 fL (80.0-100.0); Monocytes % (auto) 9.6 % (0.0-12.0); Neutrophils # (auto) 7.7 10 ^3/uL (1.6-8.6); Red Blood Cells 2.64 10^6/uL (4.5-5.90); Red Cell Distribution Width 16.8 % (11.8-14.3); White Blood Cell 10.4 10^3/uL (4.4-10.8)
[2021-01-05] MEDS: InsuLIN REG 1unit/0.01ml Soln (100units/ml) SC SCH ×2 (06:00→11:41)
[2021-01-05 06:21] LABS: BUN/Creatinine Ratio 4.9; Calcium 6.6 mg/dL (8.5-10.1); Magnesium 1.9 mg/dL (1.6-2.6); Potassium 3.9 mmol/L (3.5-5.1)
[2021-01-05] MEDS: metroNIDAZOLE 500MG/100ML 100 ML IV SCH (06:23)
[2021-01-05] MEDS: PIPERACILLIN-TAZOB 2.25GM 50 ML IV SCH (06:23)
[2021-01-05] MEDS: ACCU-CHEK COMFORT CURVE STRIP VI SCH ×2 (06:23→11:41)
[2021-01-05 09:00] VITALS: BP 158/80
[2021-01-05] MEDS: PANTOPRAZOLE 40 MG/10 ML VIAL INJ IV SCH (09:35)
[2021-01-05] MEDS: SODIUM CHLOR 0.9% PF (SALINE LOCK) 10ML VIAL/SYR IV SCH (09:35)
[2021-01-05] MEDS: LINEZOLID 600MG/300ML 300 ML IV SCH (09:35)
[2021-01-05] MEDS: hydrALAZINE HCL 20 MG/ML VL IV PRN (11:45)
[2021-01-05 12:40] VITALS: BP 156/85
[2021-01-05 16:16] VITALS: BP 142/75
[2021-01-06] MEDS ORDERED: SODIUM CHL 0.9% 1000 ML BAG XX ONE (07:00)
[2021-01-06] MEDS ORDERED: EPOETIN ALFA-EPBX 10,000 UNIT/1ML VIAL SC ONE (21:00)
== END 2021-01-05 17:00 | disposition home or self-care (01) | DRG 853 ==
LOC: ER 01:03 → OVERFLOW 06:11 → ICU WEST 12-20 09:11 → TELE-WESTW 12-22 20:55
PROVIDERS: ADMIT Nurse Practitioner; ATTEND Internal Medicine Geriatric Medicine
PROC: 02HV33Z Insertion of Infusion Device into Superior Vena Cava, Percutaneous Approach (ICD-10-PCS; 2020-12-20)
PROC: B548ZZA Ultrasonography of Superior Vena Cava, Guidance (ICD-10-PCS; 2020-12-20)
PROC: 5A1D70Z Performance of Urinary Filtration, Intermittent, Less than 6 Hours Per Day (ICD-10-PCS; 2020-12-21)
PROC: 5A1D70Z Performance of Urinary Filtration, Intermittent, Less than 6 Hours Per Day (ICD-10-PCS; 2020-12-27)
PROC: 5A1D70Z Performance of Urinary Filtration, Intermittent, Less than 6 Hours Per Day (ICD-10-PCS; 2020-12-29)
PROC: 0DTN0ZZ Resection of Sigmoid Colon, Open Approach (ICD-10-PCS; principal; 2020-12-30 10:37)
PROC: 5A1D70Z Performance of Urinary Filtration, Intermittent, Less than 6 Hours Per Day (ICD-10-PCS; 2021-01-01)
PROC: 5A1D70Z Performance of Urinary Filtration, Intermittent, Less than 6 Hours Per Day (ICD-10-PCS; 2021-01-04)
DX: A41.9 Sepsis, unspecified organism (principal); N18.6 End stage renal disease; K65.0 Generalized (acute) peritonitis; K57.20 Diverticulitis of large intestine with perforation and abscess without bleeding; I12.0 Hypertensive chronic kidney disease with stage 5 chronic kidney disease or end stage renal disease; Z20.822 Contact with and (suspected) exposure to COVID-19; E83.39 Other disorders of phosphorus metabolism; E11.51 Type 2 diabetes mellitus with diabetic peripheral angiopathy without gangrene; K21.9 Gastro-esophageal reflux disease without esophagitis; E11.22 Type 2 diabetes mellitus with diabetic chronic kidney disease; D63.1 Anemia in chronic kidney disease; E78.5 Hyperlipidemia, unspecified; E78.00 Pure hypercholesterolemia, unspecified; Z99.2 Dependence on renal dialysis; Z91.15 Patient's noncompliance with renal dialysis; Z82.49 Family history of ischemic heart disease and other diseases of the circulatory system; Z83.3 Family history of diabetes mellitus; Z89.512 Acquired absence of left leg below knee; Z79.899 Other long term (current) drug therapy; Z81.1 Family history of alcohol abuse and dependence; Z83.49 Family history of other endocrine, nutritional and metabolic diseases; Z84.89 Family history of other specified conditions
CPT/HCPCS: 36415; 36569; 71045; 74018; 74176; 74177; 80048; 80053; 80061; 80202; 81001; 82040; 82962; 83605; 83690; 83735; 84100; 84478; 84484; 85007; 85025; 85027; 85049; 85610; 85730; 86850; 86900; 86901; 86920; 87040; 87070; 87075; 87076; 87077; 87081; 87086; 87186; 87205; 87340; 87426; 87493; 90935; 93005; 96361; 96365; 96366; 96367; 96375; 96376; C9113; G0378; J0696; J1100; J1335; J1815; J2250; J2405; J2543; J2704; J3480; J3490; J7060; J7131